=== PATIENT | male | born 1940 | race Caucasian/White ===

== ENCOUNTER 2020-11-22 15:10 | Inpatient (IN) | payer MEDICARE, MEDICAID, SELFPAY ==
[2020-11-22] VITALS (23 sets, daily range): BP systolic 123–188; BP diastolic 57–87; PULSE 94–117; RESP 12–41; TEMP 29.3–37.6; O2SAT 85–99; BMI 35.9
--- NOTE | 2020-11-22 15:18 | ED_ITS ---
HPI - General Adult General Chief complaint: Shortness of Breath/Dyspnea Stated complaint: COPD exac. Time Seen by Provider: 11/22/20 15:17 Source: patient and EMS Mode of arrival: EMS History of Present Illness HPI narrative: Patient is a 79-year-old male who arrives the emergency department by EMS. He is on CPAP. Has received 1 DuoNeb and steroids prior to arrival. EMS was called to the patient's house for evaluation of shortness of breath. Information was received from the patient, the patient's friend who is at bedside and EMS. Apparently for the past several weeks the patient has been having issues with breathing. Has had problems with getting around without becoming very short of breath. Does have lower extremity swelling which has presented itself over this time. No chest pain. No abdominal pain. Has not seen his primary doctor for the symptoms. Over the past week all of the symptoms seem to have worsened. His friends have tried to get him to come to the emergency department but he has declined until today he could not catch his breath and could not move around because of the problems breathing. When EMS arrived at his house is reported that his oxygen saturations were in the low 80s. This did improve with the BiPAP and somewhat improved with the DuoNeb. Patient states that he does not have a diagnosis of COPD. Does not have a diagnosis of CHF. Very rarely goes to the doctor. Related Data Allergies Allergy/AdvReac Type Severity Reaction Status Date / Time No Known Drug Allergies Allergy Verified 11/22/20 15:22 Review of Systems Constitutional Constitutional: Denies fever(s) and Denies headache(s) Eyes Eyes: Reports as per HPI ENT Ears, Nose, Mouth, and Throat: Denies headache(s) Cardiovascular Cardiovascular: Reports as per HPI Respiratory Respiratory: Reports as per HPI Gastrointestinal Gastrointestinal: Reports system reviewed and no additional complaints, except as documented Genitourinary Genitourinary: Reports system reviewed and no additional complaints, except as documented Musculoskeletal Musculoskeletal: Reports system reviewed and no additional complaints, except as documented Integumentary/Breasts Skin/Breast: Reports system reviewed and no additional complaints, except as documented and Denies rash Neurologic Neurologic: Denies headache(s) Psychiatric Psychiatric: Reports system reviewed and no additional complaints, except as documented Endocrine Endocrine: Reports system reviewed and no additional complaints, except as documented Hematologic/Lymphatic On Anticoagulants: No Allergic/Immunologic Allergic/Immunologic: Reports system reviewed and no additional complaints, exc ept as documented Patient History Medical History Congestive heart failure Social History lives independently: Yes Exam Initial Vital Signs Initial Vital Signs: Vital Signs Pulse Rate 106 H 11/22/20 15:13 Pulse Oximetry 99 11/22/20 15:13 Const General: in distress and ill appearing [facility] Head: normal to inspection and normocephalic Eyes General: appearance normal, both eyes and all related structures Neck Neck: normal visual inspection Chest Chest: normal inspection of the chest Resp Effort & Inspection: labored, respiratory distress and tachypneic Auscultation: crackles, diminished lung sounds and wheezes Cardio Rate: tachycardic Rhythm: regular rhythm GI Inspection: normal to inspection Palpation: soft Skin General: no rashes or lesions noted Neuro General: patient alert, patient awake, patient oriented x3 and moves all extremities Extrem General: normal to inspection and capillary refill normal Psych Appearance: grossly normal and well kempt Scores GCS Klaus coma scale eye opening: Spontaneous Klaus coma scale verbal response: Orientated [place] coma scale motor response: Obey commands Aurora coma scale total score: 15 Course Orders Ordered: ED Orders 11/22/20 15:12 COVID19 -Nasal swab/Pre-Proc Stat 11/22/20 15:17 COVID19 - ADMIT (HYDRAMATIC SPECIALIST swab/PCR) Stat 11/22/20 15:19 XR chest 1V Stat RT Consult Eval and Treat Now 11/22/20 15:29 Complete Blood Count AUTO DIFF Stat Comprehensive Metabolic Panel Stat Lactate (Lactic Acid) Stat Lipase Stat NT-proBNP (BNP-Adult 18+) Stat Procalcitonin Stat Troponin & CK Cardiac Panel Stat 11/22/20 15:55 Blood Culture Stat 11/22/20 16:08 Arterial Blood Gas Stat 11/22/20 16:41 EKG-12 Lead Stat Albuterol (Albuterol 2.5 Mg/3 Ml Neb (Adult)) 2.5 mg INH [id number] PRN PRN Reason: Shortness Of Breath Last Admin: 11/22/20 17:57 Dose: 2.5 mg Documented by: OWEN Sodium Chloride (Normal Saline 0.9%) 1,000 mls @ 100 mls/hr IV CONT LUAN Last Admin: 11/22/20 15:27 Dose: 100 mls/hr Documented by: NATALI Discontinued Medications Albuterol/Ipratropium (Albuterol/Ipratropium 3 Ml Ampul) 3 ml INH Q20M LUAN Stop: 11/22/20 16:11 Last Admin: 11/22/20 15:58 Dose: 3 ml Documented by: Admin: 11/22/20 15:49 Dose: 3 ml Documented by: Admin: 11/22/20 15:27 Dose: 3 ml Documented by: NATALI Furosemide (Furosemide 100 Mg/10 Ml Vial) 60 mg IV NOW ONE Stop: 11/22/20 15:22 Last Admin: 11/22/20 15:26 Dose: 60 mg Documented by: NATALI Nitroglycerin (Nitroglycerin Oint 1 Inch/Gm Oint...G.) 0.5 inch TOP NOW ONE Stop: 11/22/20 15:22 Last Admin: 11/22/20 15:26 Dose: 0.5 inch Documented by: NATALI Vital Signs Vital signs: Vital Signs - 8 hr 11/22/20 15:13 11/22/20 15:15 11/22/20 15:22 Temperature 99.1 F Pulse Rate 106 H 108 H 117 H Respiratory Rate 40 H Blood Pressure 188/87 H 188/87 H Pulse Oximetry 99 97 85 L 11/22/20 15:26 11/22/20 15:30 11/22/20 15:33 Temperature Pulse Rate 107 H 107 H 107 H Respiratory Rate 32 H 41 H 32 H Blood Pressure 188/87 H 157/72 H Pulse Oximetry 96 96 95 11/22/20 15:49 11/22/20 16:00 11/22/20 16:01 Temperature Pulse Rate 103 H 103 H 104 H Respiratory Rate 30 H 24 24 Blood Pressure 143/61 H Pulse Oximetry 94 93 94 11/22/20 16:30 11/22/20 17:00 11/22/20 17:30 Temperature Pulse Rate 104 H 112 H 103 H Respiratory Rate 27 H 31 H 29 H Blood Pressure 126/57 L 123/59 L 125/66 Pulse Oximetry 94 93 95 11/22/20 17:57 11/22/20 18:00 11/22/20 18:01 Temperature Pulse Rate 109 H 112 H 109 H Respiratory Rate 23 28 H 29 H Blood Pressure 145/65 H Pulse Oximetry 94 92 93 Medical Decision Making Medical Records Medical records reviewed: Yes I reviewed the patient's medical records. Lab Data Lab results reviewed: Yes I reviewed the patient's lab results. Result diagrams: 11/22/20 15:29 11/22/20 15:29 Labs: Lab Results 11/22/20 11/22/20 11/22/20 Range/Units 15:12 15:17 15:29 WBC 11.9 H (4.5-11.0) X10^3/uL RBC 4.00 L (4.5-5.9) X10^6/uL Hgb 13.7 (13.5-17.5) g/dL Hct 40.4 L (41-53) % MCV 101.0 H (80-100) fL MCH 34.3 H (26-34) PG MCHC 34.0 (30-36) % RDW 13.5 (11.6-14.8) % Plt Count 275 (150-400) X10^3/uL Neut % (Auto) 87.5 H (50-75) % Lymph % (Auto) 5.9 L (25-40) % [place] % (Auto) 6.5 (3-14) % Eos % (Auto) 0.0 L (2-4) % Baso % (Auto) 0.1 (0-2) % Neut # (Auto) 45349 H (3842-8128) /uL Lymph # (Auto) 700 L (0381-4806) /uL [place] # (Auto) 800 (0-900) /uL Eos # (Auto) 0 (0-450) /uL Baso # (Auto) 0 (0-100) /uL ABG pH (7.35-7.45) ABG pCO2 (35-45) mmHg ABG pO2 (80-100) mmHg ABG HCO3 (22-26) mmol/L ABG Total CO2 (21-31) mmol/L ABG O2 Saturation (95-100) % ABG Base Excess (-2-2) mmol/L FiO2 Sodium (137-145) mmol/L Potassium (3.4-5.1) mmol/L Chloride (98-107) mmol/L Carbon Dioxide (22-32) mmol/L BUN (9-20) mg/dL Creatinine (0.66-1.25) mg/dL Estimated GFR (>60) mL/min BUN/Creatinine Ratio (6-22) Glucose (80-110) mg/dL Lactate (0.7-2.1) mmol/L Calcium (8.4-10.2) mg/dL Total Bilirubin (0.2-1.3) mg/dL AST (17-59) IU/L ALT (<50) IU/L Alkaline Phosphatase (38-126) U/L Total Creatine Kinase (55-170) U/L CK-MB (CK-2) (<2.37) ng/mL CK-MB (CK-2) Rel Index (1.5-5.0) % Troponin I (0.01-0.034) ng/mL NT-Pro-B Natriuret Pep (<450) pg/mL Total Protein (6.3-8.2) g/dL Albumin (3.5-5.0) g/dL Globulin (1.7-4.1) g/dL Albumin/Globulin Ratio (1.0-2.8) Lipase (23-300) U/L Procalcitonin (<0.5) ng/mL SARS-CoV-2 (PCR) Negative Negative (Negative) 11/22/20 11/22/20 11/22/20 Range/Units 15:29 15:29 15:29 WBC (4.5-11.0) X10^3/uL RBC (4.5-5.9) X10^6/uL Hgb (13.5-17.5) g/dL Hct (41-53) % MCV (80-100) fL MCH (26-34) PG MCHC (30-36) % RDW (11.6-14.8) % Plt Count (150-400) X10^3/uL Neut % (Auto) (50-75) % Lymph % (Auto) (25-40) % [place] % (Auto) (3-14) % Eos % (Auto) (2-4) % Baso % (Auto) (0-2) % Neut # (Auto) (4121-5926) /uL Lymph # (Auto) (4280-7297) /uL [place] # (Auto) (0-900) /uL Eos # (Auto) (0-450) /uL Baso # (Auto) (0-100) /uL ABG pH (7.35-7.45) ABG pCO2 (35-45) mmHg ABG pO2 (80-100) mmHg ABG HCO3 (22-26) mmol/L ABG Total CO2 (21-31) mmol/L ABG O2 Saturation (95-100) % ABG Base Excess (-2-2) mmol/L FiO2 Sodium 126 L (137-145) mmol/L Potassium 5.4 H (3.4-5.1) mmol/L Chloride 90 L (98-107) mmol/L Carbon Dioxide 28 (22-32) mmol/L BUN 23 H (9-20) mg/dL Creatinine 1.13 (0.66-1.25) mg/dL Estimated GFR > 60.0 (>60) mL/min BUN/Creatinine Ratio 20.4 (6-22) Glucose 137 H (80-110) mg/dL Lactate 0.9 (0.7-2.1) mmol/L Calcium 9.9 (8.4-10.2) mg/dL Total Bilirubin 0.5 (0.2-1.3) mg/dL AST 44 (17-59) IU/L ALT 37 (<50) IU/L Alkaline Phosphatase 87 (38-126) U/L Total Creatine Kinase 131 (55-170) U/L CK-MB (CK-2) 5.57 H (<2.37) ng/mL CK-MB (CK-2) Rel Index 4.3 (1.5-5.0) % Troponin I 0.074 H (0.01-0.034) ng/mL NT-Pro-B Natriuret Pep 4930 H (<450) pg/mL Total Protein 7.6 (6.3-8.2) g/dL Albumin 4.4 (3.5-5.0) g/dL Globulin 3.2 (1.7-4.1) g/dL Albumin/Globulin Ratio 1.4 (1.0-2.8) Lipase 97 (23-300) U/L Procalcitonin 0.14 (<0.5) ng/mL SARS-CoV-2 (PCR) (Negative) 11/22/20 Range/Units 16:08 WBC (4.5-11.0) X10^3/uL RBC (4.5-5.9) X10^6/uL Hgb (13.5-17.5) g/dL Hct (41-53) % MCV (80-100) fL MCH (26-34) PG MCHC (30-36) % RDW (11.6-14.8) % Plt Count (150-400) X10^3/uL Neut % (Auto) (50-75) % Lymph % (Auto) (25-40) % [place] % (Auto) (3-14) % Eos % (Auto) (2-4) % Baso % (Auto) (0-2) % Neut # (Auto) (3341-0676) /uL Lymph # (Auto) (8264-2793) /uL [place] # (Auto) (0-900) /uL Eos # (Auto) (0-450) /uL Baso # (Auto) (0-100) /uL ABG pH 7.40 (7.35-7.45) ABG pCO2 51.3 H (35-45) mmHg ABG pO2 72 L (80-100) mmHg ABG HCO3 32 H (22-26) mmol/L ABG Total CO2 34 H (21-31) mmol/L ABG O2 Saturation 94 L (95-100) % ABG Base Excess 7.0 H (-2-2) mmol/L FiO2 40 Sodium (137-145) mmol/L Potassium (3.4-5.1) mmol/L Chloride (98-107) mmol/L Carbon Dioxide (22-32) mmol/L BUN (9-20) mg/dL Creatinine (0.66-1.25) mg/dL Estimated GFR (>60) mL/min BUN/Creatinine Ratio (6-22) Glucose (80-110) mg/dL Lactate (0.7-2.1) mmol/L Calcium (8.4-10.2) mg/dL Total Bilirubin (0.2-1.3) mg/dL AST (17-59) IU/L ALT (<50) IU/L Alkaline Phosphatase (38-126) U/L Total Creatine Kinase (55-170) U/L CK-MB (CK-2) (<2.37) ng/mL CK-MB (CK-2) Rel Index (1.5-5.0) % Troponin I (0.01-0.034) ng/mL NT-Pro-B Natriuret Pep (<450) pg/mL Total Protein (6.3-8.2) g/dL Albumin (3.5-5.0) g/dL Globulin (1.7-4.1) g/dL Albumin/Globulin Ratio (1.0-2.8) Lipase (23-300) U/L Procalcitonin (<0.5) ng/mL SARS-CoV-2 (PCR) (Negative) Imaging Data Chest x-ray: Radiologist's Impression: [address] [id number] ReportSigned Patient: Beto Garcia#: [id number]: 2Acct:[id number]/Sex: 79 / MDate of Service: 11/22/20Loc: EDAccession Number: [id number] Procedure: XR chest 1V Ordering Provider: Yossi Mckeon D.O. PROCEDURE: XR CHEST 1V INDICATIONS: Shortness of breath TECHNIQUE: One view of the chest was acquired. COMPARISON: [facility], CR, XR CHEST 2 VIEWS, 12/29/2019, 15:13. [facility], CT, CT CHEST WITH CONTRAST, 01/14/2020, 15:07. FINDINGS: Surgical changes and devices: There is a catheter projecting over the right paramedian chest. Lungs and pleura: Mild airspace opacity in the right lower lung similar to the prior exam. Emphysematous change. No pleural effusions or pneumothorax. Mediastinum: Mediastinal contours appear unchanged. Heart size is within normal limits. Bones and chest wall: No suspicious bony lesions. Overlying soft tissues appear unremarkable. IMPRESSION: Similar opacity in the right lower lung compared to 2020. This most likely represents scarring or atelectasis. Emphysematous change. Dictated by: Matthias Lama M.D. on 11/22/2020 at 15:46 Approved by: Matthias Lama M.D. on 11/22/2020 at 15:50 ECG Data Attestation: I personally reviewed and interpreted this ECG as follows: Interpretation: Sinus tachycardia Ventricular rate 102 Normal axis Normal QRS Normal QTC Nonspecific ST T wave changes MDM Narrative Medical decision making narrative: Patient did respiratory distress. He had already received a nebulizer and steroids prior to arrival. His COVID was negative. Chest x-ray does not show any signs of pneumonia. No antibiotics administered. Use placed on BiPAP in this did improve his symptoms tremendously. Was hypertensive upon arrival. Was also given nitro. Is also given Lasix. He did not diurese very much here in the ER. His blood pressure improved. Attempted to take the patient off of BiPAP however after approximately 10 minutes he did become hypoxic and to return if his respiratory distress. He is placed back on BiPAP. Discussed the case with Dr. Coulter with internal medicine who will admit for further evaluation treatment. Discussed admission with the patient. He expressed understanding. Critical Care Time Critical Care Time Critical Care Time: Yes Total Critical Care Time: 35 Attestation: The high probability of a clinically significant, sudden or life threatening deterioration of the respiratory system(s) required my full and direct attention, intervention and personal management. The aggregate critical care time was 35 minutes. This time is in addition to time spent performing reported procedures but includes the following: [x] Data Review and interpretation [x] Patient assessment and monitoring of vital signs [x] Documentation [x] Medication orders and management Discharge Plan Departure Patient Disposition: Admitted As Inpatient Clinical Impression: COPD exacerbation, Hypoxia, Congestive heart failure Admit Date/Time: 11/22/20 18:19 Admit Provider: Gerard Coulter
[2020-11-22] MEDS: NITROGLYCERIN OINT 1 INCH/GM OINT...G. 0.5 INCH TOP (15:26)
[2020-11-22] MEDS: FUROSEMIDE 100 MG/10 ML VIAL 60 MG IV (15:26)
[2020-11-22] MEDS: ALBUTEROL/IPRATROPIUM 3 ML AMPUL INH ×3 (15:27→15:58)
[2020-11-22] MEDS: SODIUM CHLORIDE 0.9% 1,000 ML 100 ML IV (15:27)
[2020-11-22 15:41] LABS: Add Manual Diff / Slide Review NO; Basophils Absolute Auto 0 /uL (0-100); Basophils Percent Auto 0.1 % (0-2); Eosinophils Absolute Auto 0 /uL (0-450); Hematocrit 40.4 % (41-53); Hemoglobin 13.7 g/dL (13.5-17.5); Lymphocytes Absolute Auto 700 /uL (1100-4500); Lymphocytes Percent Auto 5.9 % (25-40); Mean Corpuscular Hemoglobin 34.3 PG (26-34); Monocytes Absolute Auto 800 /uL (0-900); Monocytes Percent Auto 6.5 % (3-14); Neutrophils Absolute Auto 10400 /uL (1500-7000); Neutrophils Percent Auto 87.5 % (50-75); Platelet Count 275 X10^3/uL (150-400); Red Cell Distribution Width 13.5 % (11.6-14.8); White Blood Cell Count 11.9 X10^3/uL (4.5-11.0)
[2020-11-22 15:52] LABS: Lactate (Lactic Acid) 0.9 mmol/L (0.7-2.1)
[2020-11-22 15:53] LABS: Alanine Aminotransferase 37 IU/L (<50); Albumin 4.4 g/dL (3.5-5.0); Albumin Globulin Ratio 1.4 (1.0-2.8); Alkaline Phosphatase 87 U/L (38-126); Aspartate Aminotransferase 44 IU/L (17-59); BUN Creatinine Ratio 20.4 (6-22); Bilirubin Total 0.5 mg/dL (0.2-1.3); Blood Urea Nitrogen 23 mg/dL (9-20); Calcium 9.9 mg/dL (8.4-10.2); Carbon Dioxide 28 mmol/L (22-32); Chloride 90 mmol/L (98-107); Creatine Kinase 131 U/L (55-170); Estimated Glomerular Filt Rate > 60.0 mL/min (>60); Globulin 3.2 g/dL (1.7-4.1); Glucose 137 mg/dL (80-110); HEMOLYSIS < 15 (0-50); Lipase 97 U/L (23-300); Sodium 126 mmol/L (137-145); Total Protein 7.6 g/dL (6.3-8.2)
[2020-11-22 15:58] LABS: Potassium 5.4 mmol/L (3.4-5.1)
[2020-11-22 16:01] LABS: COVID19 -Nasal RAPID Negative (Negative)
[2020-11-22 16:05] LABS: NT-proBNP (BNP-Adult 18+) 4930 pg/mL (<450); Troponin I 0.074 ng/mL (0.01-0.034)
[2020-11-22 16:10] LABS: Procalcitonin 0.14 ng/mL (<0.5)
[2020-11-22 16:15] LABS: CKMB % Relative Index 4.3 % (1.5-5.0); Creatine Kinase MB 5.57 ng/mL (<2.37)
[2020-11-22 16:35] LABS: COVID19 - ADMIT (NP swab/PCR) Negative (Negative)
[2020-11-22] MEDS: ALBUTEROL 2.5 MG/3 ML NEB (ADULT) INH ×2 (17:57→22:43)
--- NOTE | 2020-11-22 17:57 | PC.NURSE ---
Felix RT attempted to take pt off bipap. Pt put on nasal canula. he failed and was placed back on bipap
[2020-11-22 18:16] LABS: HCO3 ABG 32 mmol/L (22-26); PCO2 ABG 51.3 mmHg (35-45); PO2 ABG 72 mmHg (80-100)
[2020-11-22 18:17] LABS: Fractionated Inspired Oxygen 40; Oxygen Saturation ABG 94 % (95-100); TCO2 ABG 34 mmol/L (21-31)
[2020-11-22 20:24] LABS: Magnesium 1.9 mg/dL (1.6-2.3)
[2020-11-22 21:37] LABS: Troponin I 0.085 ng/mL (0.01-0.034)
--- NOTE | 2020-11-22 23:16 | PC.ADMIT ---
[address] Admission Note: The patient,Bhupendra Garcia,79 y/o, was given written information regarding hospital policies, unit procedures and contact persons. Patient's smoking status: . Vital Signs - 8 hr 11/22/20 15:22 11/22/20 15:26 11/22/20 15:30 Temperature 99.1 F Pulse Rate 117 H 107 H 107 H Respiratory Rate 40 H 32 H 41 H Blood Pressure 188/87 H 188/87 H Pulse Oximetry 85 L 96 96 11/22/20 15:33 11/22/20 15:49 11/22/20 16:00 Temperature Pulse Rate 107 H 103 H 103 H Respiratory Rate 32 H 30 H 24 Blood Pressure 157/72 H Pulse Oximetry 95 94 93 11/22/20 16:01 11/22/20 16:30 11/22/20 17:00 Temperature Pulse Rate 104 H 104 H 112 H Respiratory Rate 24 27 H 31 H Blood Pressure 143/61 H 126/57 L 123/59 L Pulse Oximetry 94 94 93 11/22/20 17:30 11/22/20 17:57 11/22/20 18:00 Temperature Pulse Rate 103 H 109 H 112 H Respiratory Rate 29 H 23 28 H Blood Pressure 125/66 Pulse Oximetry 95 94 92 11/22/20 18:01 11/22/20 18:30 11/22/20 18:31 Temperature Pulse Rate 109 H 106 H 94 H Respiratory Rate 29 H 21 18 Blood Pressure 145/65 H 126/58 L Pulse Oximetry 93 97 95 11/22/20 19:00 11/22/20 19:51 11/22/20 19:59 Temperature 99.6 F Pulse Rate 109 H Respiratory Rate 20 30 H Blood Pressure 133/65 174/85 H 174/85 H Pulse Oximetry 94 96 11/22/20 21:00 11/22/20 22:45 Temperature Pulse Rate 107 H Respiratory Rate 32 H Blood Pressure 174/85 H 174/85 H Pulse Oximetry 95 Patient admitted from ED to ICU under hospitalists care at 1950. Patient A/Ox4, on bipap 18/10, 35% FiO2, spO2 in 90's, hypertensive, sinus tach on telemetry. 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 Patient's belongings in room closet. Oriented to room, able to make needs known.
[2020-11-23] VITALS (25 sets, daily range): BP systolic 144–195; BP diastolic 56–84; PULSE 87–117; RESP 12–35; TEMP 30.7–37.4; O2SAT 92–97
[2020-11-23] MEDS: AMLODIPINE 5 MG TABLET 10 MG PO ×2 (00:17→20:23)
[2020-11-23] MEDS: diphenhydrAMINE 25 MG TABLET PO (00:18)
[2020-11-23] MEDS: ALBUTEROL/IPRATROPIUM 3 ML AMPUL INH ×5 (01:07→20:09)
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
[2020-11-23] MEDS: IPRATROPIUM 0.5 MG/2.5 ML NEB INH (05:47)
[2020-11-23] MEDS: ALBUTEROL 2.5 MG/3 ML NEB (ADULT) INH (05:48)
[2020-11-23 06:27] LABS: Add Manual Diff / Slide Review NO; Basophils Absolute Auto 0 /uL (0-100); Basophils Percent Auto 0.1 % (0-2); Eosinophils Absolute Auto 0 /uL (0-450); Hematocrit 37.7 % (41-53); Hemoglobin 12.7 g/dL (13.5-17.5); Lymphocytes Absolute Auto 800 /uL (1100-4500); Lymphocytes Percent Auto 7.4 % (25-40); Mean Corpuscular HGB Conc 33.6 % (30-36); Mean Corpuscular Volume 101.1 fL (80-100); Monocytes Absolute Auto 800 /uL (0-900); Monocytes Percent Auto 7.8 % (3-14); Neutrophils Absolute Auto 8800 /uL (1500-7000); Neutrophils Percent Auto 84.7 % (50-75); Platelet Count 259 X10^3/uL (150-400); Red Blood Cell Count 3.73 X10^6/uL (4.5-5.9); Red Cell Distribution Width 13.7 % (11.6-14.8); White Blood Cell Count 10.4 X10^3/uL (4.5-11.0)
--- NOTE | 2020-11-23 06:32 | PC.NURSE ---
Bun Machine Operator Note-Patient tolerated Bi-pap overnight, FIO2 35%, 30/01, SpO2 > 93%, placed on3.5L NC at 0100 to have a snack, sats 90%, no dyspnea, at 0545 placed on NC but quickly became short of breath, no chest pain, Bi-pap back on, RT tx given, HOB in high Fowlers, he settled.
[2020-11-23 06:33] LABS: Prothrombin Time 11.3 SECONDS (10.1-12.7)
[2020-11-23 06:40] LABS: Alanine Aminotransferase 29 IU/L (<50); Albumin 3.8 g/dL (3.5-5.0); Albumin Globulin Ratio 1.3 (1.0-2.8); Alkaline Phosphatase 69 U/L (38-126); Aspartate Aminotransferase 33 IU/L (17-59); Bilirubin Total 0.4 mg/dL (0.2-1.3); Blood Urea Nitrogen 34 mg/dL (9-20); Calcium 9.4 mg/dL (8.4-10.2); Carbon Dioxide 29 mmol/L (22-32); Chloride 92 mmol/L (98-107); Estimated Glomerular Filt Rate 50.7 mL/min (>60); Globulin 2.9 g/dL (1.7-4.1); Glucose 156 mg/dL (80-110); HEMOLYSIS < 15 (0-50); Sodium 127 mmol/L (137-145); Total Protein 6.7 g/dL (6.3-8.2)
[2020-11-23 06:43] LABS: Potassium 5.1 mmol/L (3.4-5.1)
[2020-11-23 06:46] LABS: NT-proBNP (BNP-Adult 18+) 4240 pg/mL (<450)
[2020-11-23 06:50] LABS: Troponin I 0.092 ng/mL (0.01-0.034)
[2020-11-23] MEDS: BUDESONIDE 0.5 MG/2 ML NEB INH ×2 (07:28→20:09)
[2020-11-23 08:13] LABS: Fractionated Inspired Oxygen 35; HCO3 ABG 31 mmol/L (22-26); Oxygen Saturation ABG 95 % (95-100); PCO2 ABG 52.5 mmHg (35-45); PO2 ABG 80 mmHg (80-100); TCO2 ABG 33 mmol/L (21-31); pH ABG 7.38 (7.35-7.45)
[2020-11-23] MEDS: predniSONE 20 MG TABLET 40 MG PO (08:27)
[2020-11-23] MEDS: lisinopriL 20 MG TABLET 40 MG PO (08:27)
[2020-11-23] MEDS: ENOXAPARIN 40 MG/0.4 ML SYRINGE SUBCUT (08:27)
[2020-11-23] MEDS: SODIUM CHLORIDE 0.9% FLUSH 10 ML IV ×3 (08:28→20:23)
[2020-11-23] MEDS: FUROSEMIDE 40 MG/4 ML VIAL IV (08:51)
--- NOTE | 2020-11-23 10:55 | CM.DANOTE ---
Patient is a 79 yo male admitted on 11/22/20 for COPD exacerbation. Pt has [facility] and [facility] for insurance and his PCP is not listed. EMR was reviewed. Per MD, pt admitted with respiratory failure with hypoxia and COPD exacerbation with possible CHF. Per RN, pt currently on bipap after NC Oxygen was not enough. SW met bedside with pt and explained role and he was alert and oriented but a little hard to hear due to bipap. Pt lives alone in an apt in [place] but has very supportive neighbor who delivers groceries to him and another neighbor who calls on the phone to check in and then his close friends Coco Arevalo and her who are pt's DPOAs. Pt states he is typically somewhat active and independent at baseline and maybe has a sister who lives nearby in Assisted Living. Pt denies any hx of HH or SNF and states he is already feeling better but still below baseline. PT eval could be beneficial once pt more medically appropriate with his Sats towards determining if safe for d/c back home alone with local assist from friends. Plan: SW to follow for further eval closer to d/c towards determining if home alone with local assist is safe and any further identified needs. DAYNA Moran Discharge Planning/Care Management CM Discharge Assessment Start: 11/23/20 10:53 Freq: Status: Active Protocol: Document 11/23/20 10:53 BF (Rec: 11/23/20 10:55 BF [id number]) Discharge Planning Assessment Assigned Cup Setter Lockstitch DAYNA Gallardo DPOA/Assigned Designee Name friend Coco Arevalo Contact Information [phone] Advance Directives? No Advance Directives on File No History Provided By Patient,Medical Record Has Patient been admitted in last 30 No days? Prior Living Arrangements Apartment/Condo Household Members none Type of transporation used prior to Drives own vehicle admit Independent with ADL's Yes Is patient alert and oriented? Yes Needs Assistance With Home Chores / Shopping Caregiver for Another No Barriers to Discharge No Discharge Plan Home Transportation Arrangement friend can likely transport at d/c Additional Comment Pending possible need for PT eval when pt more medically appropriate Whiteboard Updated in Patient Room with Yes name and ext. # of Cup Setter Lockstitch Review Status In Process Please Provide Date Initial DC 11/23/20 Assessment Was Performed Next Review Type Continued Stay Review
[2020-11-23 12:49] LABS: Troponin I 0.077 ng/mL (0.01-0.034)
--- NOTE | 2020-11-23 15:10 | PC.NURSE ---
Patient tolerated BiPAP well today, managed by RT. Patient denies pain, feeling better but reports being tired from not sleeping well last night. Tolerated sitting up in chair, 1 min assistance to get up and agrees to call for assistance. RT titrated to NC at change of shift, and currently at 94-95% on 4L. Urinal and Call light within reach.
--- NOTE | 2020-11-23 17:15 | PC.NURSE ---
1500: Pt up to BSC for BM, HR up to 120, RR 30, SPO2 80% Placed back on BIPAP at previous settings of 15/8 35%. O2 SATs improved to 92% and HR 102.
--- NOTE | 2020-11-23 18:19 | PM.PN.1 ---
Subjective Subjective Interval history: Patient is a 79-year-old male who was admitted to the hospital with acute on chronic respiratory failure, he was initially on BiPAP, patient was taken off BiPAP but got up this evening and was markedly tachycardic, tachypneic, and hypoxic. He was placed back on BiPAP. Exam Vital Signs (past 8 hours): - 11/23/20 10:36 11/23/20 12:00 11/23/20 12:52 Temperature 98.4 F Pulse Rate 87 102 H Respiratory Rate 21 23 Blood Pressure 150/84 H 150/84 H Pulse Oximetry 95 93 11/23/20 14:15 11/23/20 14:36 11/23/20 14:42 Temperature 97.5 F L Pulse Rate 90 109 H Respiratory Rate 24 24 Blood Pressure 155/73 H 155/73 H Pulse Oximetry 93 94 11/23/20 15:26 11/23/20 15:57 11/23/20 16:42 Temperature 98.2 F Pulse Rate 99 H 100 H 92 H Respiratory Rate 24 30 H 24 Blood Pressure 159/70 H Pulse Oximetry 93 94 93 11/23/20 17:05 Temperature Pulse Rate Respiratory Rate Blood Pressure 159/70 H Pulse Oximetry Fraction of Inspired Oxygen 30 Oxygen Delivery Method Nasal Cannula Oxygen Flow Rate 2.5 Narrative Exam Narrative: Ill-appearing male lying in bed Resp Other: Lungs decreased breath sounds Cardio Other: Cardiac exam: Regular rate and rhythm normal S1-S2 GI Other: Abdomen: Soft nontender nondistended Extrem Other: Extremities: No edema Objective Labs Result Diagrams: 11/23/20 05:05 11/23/20 05:05 Labs: Laboratory Results - last 24 hr 11/22/20 11/22/20 11/23/20 15:29 21:00 05:05 WBC 10.4 RBC 3.73 L Hgb 12.7 L Hct 37.7 L MCV 101.1 H MCH 34.0 MCHC 33.6 RDW 13.7 Plt Count 259 Neut % (Auto) 84.7 H Lymph % (Auto) 7.4 L [place] % (Auto) 7.8 Eos % (Auto) 0.0 L Baso % (Auto) 0.1 Neut # (Auto) 8800 H Lymph # (Auto) 800 L [place] # (Auto) 800 Eos # (Auto) 0 Baso # (Auto) 0 PT INR ABG pH ABG pCO2 ABG pO2 ABG HCO3 ABG Total CO2 ABG O2 Saturation ABG Base Excess FiO2 Sodium Potassium Chloride Carbon Dioxide BUN Creatinine Estimated GFR BUN/Creatinine Ratio Glucose Calcium Magnesium 1.9 Total Bilirubin AST ALT Alkaline Phosphatase Troponin I 0.085 H NT-Pro-B Natriuret Pep Total Protein Albumin Globulin Albumin/Globulin Ratio Nasal Screen MRSA (PCR) 11/23/20 11/23/20 11/23/20 05:05 05:05 05:05 WBC RBC Hgb Hct MCV MCH MCHC RDW Plt Count Neut % (Auto) Lymph % (Auto) [place] % (Auto) Eos % (Auto) Baso % (Auto) Neut # (Auto) Lymph # (Auto) [place] # (Auto) Eos # (Auto) Baso # (Auto) PT 11.3 INR 1.0 ABG pH ABG pCO2 ABG pO2 ABG HCO3 ABG Total CO2 ABG O2 Saturation ABG Base Excess FiO2 Sodium 127 L Potassium 5.1 Chloride 92 L Carbon Dioxide 29 BUN 34 H Creatinine 1.36 H Estimated GFR 50.7 L BUN/Creatinine Ratio 25.0 H Glucose 156 H Calcium 9.4 Magnesium Total Bilirubin 0.4 AST 33 ALT 29 Alkaline Phosphatase 69 Troponin I 0.092 H NT-Pro-B Natriuret Pep 4240 H Total Protein 6.7 Albumin 3.8 Globulin 2.9 Albumin/Globulin Ratio 1.3 Nasal Screen MRSA (PCR) 11/23/20 11/23/20 11/23/20 07:31 10:28 12:20 WBC RBC Hgb Hct MCV MCH MCHC RDW Plt Count Neut % (Auto) Lymph % (Auto) [place] % (Auto) Eos % (Auto) Baso % (Auto) Neut # (Auto) Lymph # (Auto) [place] # (Auto) Eos # (Auto) Baso # (Auto) PT INR ABG pH 7.38 ABG pCO2 52.5 H ABG pO2 80 ABG HCO3 31 H ABG Total CO2 33 H ABG O2 Saturation 95 ABG Base Excess 6.0 H FiO2 35 Sodium Potassium Chloride Carbon Dioxide BUN Creatinine Estimated GFR BUN/Creatinine Ratio Glucose Calcium Magnesium Total Bilirubin AST ALT Alkaline Phosphatase Troponin I 0.077 H NT-Pro-B Natriuret Pep Total Protein Albumin Globulin Albumin/Globulin Ratio Nasal Screen MRSA (PCR) Negative for mrsa [facility] Medical History (Updated 11/23/20 @ 03:51 by JESSE Ann) Congestive heart failure Insomnia JESUS on CPAP Surgical History (Updated 11/23/20 @ 03:51 by JESSE Ann) History of tonsillectomy Family History Mother Diabetes mellitus Father Diabetes mellitus Social History household members: none lives independently: Yes alcohol intake: current Assessment & Plan Assessment & Plan narrative: Acute hypercapnic respiratory failure with hypoxia and COPD exacerbation in the possible setting acute CHF exacerbation, acute on chronic, the setting of chronic JESUS with CPAP usage, present on admission, with NO home oxygen use. -possible acute on chronic, verses end-stage interstitial lung disease, COPD/CHF exacerbation -temp 99.1?, BP 133/65, HR 94, R 20, O2 saturation 94% on BiPAP 18/10 rate of 12, 35%. WBCs 11.9, MCV 101, neutrophils 10,400, HCT 40.4, sodium 126, Cl 90, BUN 23, potassium 5.4, glucose 137. ABGs: PH 7.4, pCO2 51.3, HC03 32, FiO2 40. Patient's chest x-ray demonstrated similar opacities in right lower lobe as compared with 2020 possible scarring or atelectasis Emphysematous changes. -a.m. labs ordered pro BNP, magnesium, CBC, CMP, PT/PTT, Repeat ABG. -patient to be monitored on tele medicine, vital signs q.4 hours, intake and output monitored Q shift, weight measure daily, diet:heart healthy. -Lasix 20 mg p.o. b.i.d., prednisone 40 mg p.o. q.dayx 5days -respiratory consult, patient to remain on BiPAP, continue patient's inhalers as prescribed Atrovent, Pulmicort, albuterol -given the patient's severe acute hypoxic respiratory failure will switch prednisone to IV Solu-Medrol 60 Q 8 -will change Lasix to 40 mg IV daily Hyponatremia -multifactorial, will follow up in the morning 2. Elevated troponin, acute, present on admission - CK-MB 5.57, troponin 0.074, proBNP 4930. Patient's lipase, procalcitonin negative. EKG: tachycardic at a rate of 102, with nonspecific ST and T-wave changes. -repeat troponin x2 -monitor for [place], repeat troponin, proBNP in a.m. -troponin peaked at 0.092 now 0.077 -suspect demand ischemia related to underlying acute hypoxic respiratory failure 3. Essential hypertension, acute on chronic, present on admission -continue patient's amlodipine 4. Chronic back pain due to degenerative disc disease, acute on chronic, present on admission -position for comfort, continue patient's gabapentin 5. Obesity as evidence by BMI 35.9, acute on chronic, present on admission Consideration will be given to dietary counseling. I have utilized all available immediate resources to obtain update and review the patient's current medications
[2020-11-23] MEDS: methylPREDNISolone 125 MG/2 ML VIAL 60 MG IV (18:28)
[2020-11-23] MEDS: TEMAZEPAM 15 MG CAPSULE PO (21:53)
[2020-11-24] VITALS (19 sets, daily range): BP systolic 150–172; BP diastolic 65–79; PULSE 64–103; RESP 12–37; TEMP 35.9–37.1; O2SAT 91–95
[2020-11-24] MEDS: ALBUTEROL/IPRATROPIUM 3 ML AMPUL INH ×6 (00:03→20:05)
[2020-11-24] MEDS: methylPREDNISolone 125 MG/2 ML VIAL 60 MG IV ×3 (01:42→17:32)
[2020-11-24] MEDS: diphenhydrAMINE 25 MG TABLET PO (02:16)
[2020-11-24 05:36] LABS: Add Manual Diff / Slide Review NO; Basophils Absolute Auto 0 /uL (0-100); Basophils Percent Auto 0.1 % (0-2); Eosinophils Absolute Auto 0 /uL (0-450); Hematocrit 37.7 % (41-53); Hemoglobin 12.6 g/dL (13.5-17.5); Lymphocytes Absolute Auto 600 /uL (1100-4500); Lymphocytes Percent Auto 4.5 % (25-40); Mean Corpuscular HGB Conc 33.3 % (30-36); Mean Corpuscular Hemoglobin 33.6 PG (26-34); Monocytes Absolute Auto 400 /uL (0-900); Monocytes Percent Auto 3.3 % (3-14); Neutrophils Absolute Auto 11900 /uL (1500-7000); Neutrophils Percent Auto 92.1 % (50-75); Platelet Count 258 X10^3/uL (150-400); Red Blood Cell Count 3.73 X10^6/uL (4.5-5.9); Red Cell Distribution Width 13.7 % (11.6-14.8)
[2020-11-24 05:46] LABS: Alanine Aminotransferase 25 IU/L (<50); Albumin 3.6 g/dL (3.5-5.0); Albumin Globulin Ratio 1.3 (1.0-2.8); Alkaline Phosphatase 59 U/L (38-126); Aspartate Aminotransferase 26 IU/L (17-59); BUN Creatinine Ratio 33.1 (6-22); Bilirubin Total 0.3 mg/dL (0.2-1.3); Blood Urea Nitrogen 43 mg/dL (9-20); Calcium 9.2 mg/dL (8.4-10.2); Carbon Dioxide 31 mmol/L (22-32); Chloride 92 mmol/L (98-107); Estimated Glomerular Filt Rate 53.4 mL/min (>60); Globulin 2.8 g/dL (1.7-4.1); Glucose 172 mg/dL (80-110); HEMOLYSIS < 15 (0-50); Sodium 127 mmol/L (137-145); Total Protein 6.4 g/dL (6.3-8.2)
[2020-11-24] MEDS: BUDESONIDE 0.5 MG/2 ML NEB INH ×2 (06:04→20:05)
--- NOTE | 2020-11-24 06:14 | PC.NURSE ---
Assumed care of Pt @ 0300, Pt tolerating Bipap well this shift. Resting comfortably with 15/8 30% Fio2.
[2020-11-24] MEDS: lisinopriL 20 MG TABLET 40 MG PO (08:05)
[2020-11-24] MEDS: ENOXAPARIN 40 MG/0.4 ML SYRINGE SUBCUT (08:05)
[2020-11-24] MEDS: FUROSEMIDE 40 MG/4 ML VIAL IV (08:05)
[2020-11-24] MEDS: SODIUM CHLORIDE 0.9% FLUSH 10 ML IV ×3 (08:05→20:30)
[2020-11-24] MEDS: ALBUTEROL 2.5 MG/3 ML NEB (ADULT) INH (08:19)
--- NOTE | 2020-11-24 09:08 | PC.NURSE ---
Patient reports he finally got some sleep last night after having insomnia for multiple nights. Patient reports feeling discouraged that he is not better today. RT transitioned patient from Bipap to 3.5L NC and patient attempting to eat breakfast at this time. 90-93% on continuous pulse ox. Feels increasing shortness of breath with any movement. Call light and urinal within reach. noted increased blood sugars and notified Dr. Sanderson, she will evaluate for sliding scale if needed.
--- NOTE | 2020-11-24 11:01 | PM.PN.1 ---
Exam Vital Signs (past 8 hours): - 11/24/20 04:04 11/24/20 04:13 11/24/20 06:05 Temperature 97.5 F L Pulse Rate 67 79 Respiratory Rate 18 18 Blood Pressure 164/74 H 164/74 H Pulse Oximetry 92 95 11/24/20 06:08 11/24/20 08:05 11/24/20 08:21 Temperature Pulse Rate 96 H 100 H Respiratory Rate 24 Blood Pressure 164/74 H 164/77 H Pulse Oximetry 92 11/24/20 08:54 Temperature 98.3 F Pulse Rate 89 Respiratory Rate 23 Blood Pressure 164/77 H Pulse Oximetry 95 Fraction of Inspired Oxygen 30 Oxygen Delivery Method Nasal Cannula Oxygen Flow Rate 30 Narrative Exam Narrative: Ill appearing male on 3.5 liters sitting up in bed Eyes Other: EOMi, Sclera anicteric Resp Other: Decreased Breath Sounds with diffuse rhonchi and prolonged end expiratory wheezing Cardio Other: Regular Rate and Rhythm Nl sl S2 GI Other: Abd: soft/ non tender Extrem Other: No edema Objective Labs Result Diagrams: 11/24/20 05:23 11/24/20 05:23 Labs: Laboratory Results - last 24 hr 11/23/20 11/23/20 11/24/20 10:28 12:20 05:23 WBC 13.0 H RBC 3.73 L Hgb 12.6 L Hct 37.7 L MCV 101.0 H MCH 33.6 MCHC 33.3 RDW 13.7 Plt Count 258 Neut % (Auto) 92.1 H Lymph % (Auto) 4.5 L [place] % (Auto) 3.3 Eos % (Auto) 0.0 L Baso % (Auto) 0.1 Neut # (Auto) 98100 H Lymph # (Auto) 600 L [place] # (Auto) 400 Eos # (Auto) 0 Baso # (Auto) 0 Sodium Potassium Chloride Carbon Dioxide BUN Creatinine Estimated GFR BUN/Creatinine Ratio Glucose Calcium Total Bilirubin AST ALT Alkaline Phosphatase Troponin I 0.077 H Total Protein Albumin Globulin Albumin/Globulin Ratio Nasal Screen MRSA (PCR) Negative for mrsa 11/24/20 05:23 WBC RBC Hgb Hct MCV MCH MCHC RDW Plt Count Neut % (Auto) Lymph % (Auto) [place] % (Auto) Eos % (Auto) Baso % (Auto) Neut # (Auto) Lymph # (Auto) [place] # (Auto) Eos # (Auto) Baso # (Auto) Sodium 127 L Potassium 5.0 Chloride 92 L Carbon Dioxide 31 BUN 43 H Creatinine 1.30 H Estimated GFR 53.4 L BUN/Creatinine Ratio 33.1 H Glucose 172 H Calcium 9.2 Total Bilirubin 0.3 AST 26 ALT 25 Alkaline Phosphatase 59 Troponin I Total Protein 6.4 Albumin 3.6 Globulin 2.8 Albumin/Globulin Ratio 1.3 Nasal Screen MRSA (PCR) [facility] Medical History (Updated 11/23/20 @ 03:51 by JESSE Ann) Congestive heart failure Insomnia JESUS on CPAP Surgical History (Updated 11/23/20 @ 03:51 by JESSE Ann) History of tonsillectomy Family History Mother Diabetes mellitus Father Diabetes mellitus Social History household members: none lives independently: Yes alcohol intake: current Assessment & Plan Assessment & Plan narrative: Acute hypercapnic respiratory failure with hypoxia and COPD exacerbation in the possible setting acute CHF exacerbation, acute on chronic, the setting of chronic JESUS with CPAP usage, present on admission, with NO home oxygen use. -possible acute on chronic, verses end-stage interstitial lung disease, COPD/CHF exacerbation -temp 99.1?, BP 133/65, HR 94, R 20, O2 saturation 94% on BiPAP 18/10 rate of 12, 35%. WBCs 11.9, MCV 101, neutrophils 10,400, HCT 40.4, sodium 126, Cl 90, BUN 23, potassium 5.4, glucose 137. ABGs: PH 7.4, pCO2 51.3, HC03 32, FiO2 40. Patient's chest x-ray demonstrated similar opacities in right lower lobe as compared with 2020 possible scarring or atelectasis Emphysematous changes. -a.m. labs ordered pro BNP, magnesium, CBC, CMP, PT/PTT, Repeat ABG. -patient to be monitored on tele medicine, vital signs q.4 hours, intake and output monitored Q shift, weight measure daily, diet:heart healthy. -Lasix 20 mg p.o. b.i.d., prednisone 40 mg p.o. q.dayx 5days -respiratory consult, patient to remain on BiPAP, continue patient's inhalers as prescribed Atrovent, Pulmicort, albuterol -given the patient's severe acute hypoxic respiratory failure will switch prednisone to IV Solu-Medrol 60 Q 8 -will change Lasix to 40 mg IV daily -Patient is now off Bipap, will continue oxygen by nasal cannula -Will obtain PT/OT consultation -Echo obtained November 2019 reveals EF 60-65% 2. Hyponatremia -multifactorial, will follow up in the morning 3. Elevated troponin, acute, present on admission - CK-MB 5.57, troponin 0.074, proBNP 4930. Patient's lipase, procalcitonin negative. EKG: tachycardic at a rate of 102, with nonspecific ST and T-wave changes. -repeat troponin x2 -monitor for NE, repeat troponin, proBNP in a.m. -troponin peaked at 0.092 now 0.077 -suspect demand ischemia related to underlying acute hypoxic respiratory failure 3. Essential hypertension, acute on chronic, present on admission -continue patient's amlodipine 4. Chronic back pain due to degenerative disc disease, acute on chronic, present on admission -position for comfort, continue patient's gabapentin 5. Obesity as evidence by BMI 35.9, acute on chronic, present on admission Consideration will be given to dietary counseling. 6. SOLOMON Creatinine now 1.3, baseline 1.13 Will discontinue lasix for now
--- NOTE | 2020-11-24 14:30 | PT.IIE ---
Medical History (Last Updated 11/23/20 @ 03:51 by Juliana Hatch, [facility]) Congestive heart failure Insomnia JESUS on CPAP Physical Therapy Inpatient Evaluation/Re-Eval M1 PT/OT-IP Prior Functional Status Start: 11/24/20 14:51 Freq: NEEDED Status: Active Protocol: Document 11/24/20 14:51 [facility] (Rec: 11/24/20 15:06 [facility] [id number]) Medical Review Prior Functional Status Medical History Reviewed Yes Diet/Fluid Consistency Regular Communication WNL Mobility and Gait indep w/cane Activities of Daily Living and IADL's Pt typically indep w/ADLs and does own cleaning and cooking. notes he still drives Social History Household Members none Living Arrangements Apartment/Condo Number of Floors (Floors) One Floor Number of Stairs To Enter/Railing? full flight w/rail to enter Home Environment High Toilet,Walk in Shower Home Equipment Front Wheel Walker,Straight Cane,Shower Seat without Backrest Employment Status Retired Additional Social History Comment Has neighbors that check in on him M2 PT-IP Current Condition Start: 11/24/20 14:51 Freq: NEEDED Status: Active Protocol: Document 11/24/20 14:51 [facility] (Rec: 11/24/20 15:06 [facility] [id number]) Physical Therapy Current Condition Current Condition Evaluation Date 11/24/20 Treatment Diagnosis CPOD exac, weakness M3 PT-IP Subjective Start: 11/24/20 14:51 Freq: NEEDED Status: Active Protocol: Document 11/24/20 14:51 [facility] (Rec: 11/24/20 15:06 [facility] [id number]) Subjective Physical Therapy Visit Type Type Initial Evaluation Visit Start Time 13:45 Visit Stop Time 14:13 Total Visit Minutes 28 Number of COLD WORKING INSPECTOR Visits 0 Physical Therapy Visit Comments Patient Comments Agreeable to PT M4 PT-IP Mobility and Gait Start: 11/24/20 14:51 Freq: NEEDED Status: Active Protocol: Document 11/24/20 14:51 [facility] (Rec: 11/24/20 15:06 [facility] [id number]) PT-Bed Mobility Assessment Supine to Sit Supine to Sit Standby Assistance,Head of Bed Elevated,Bedrails Scooting Scooting to Edge of Bed Standby Assistance PT-Transfer Assessment Sit to and From Stand Sit to and from Stand Contact Guard Assistance Equipment Transfer Assistive Device Gait Belt,Straight Cane Orthotic/Prosthetic Devices or Brace: No Transfers Transfer Destination Chair Transfer Technique Stand Step Pivot Transfer Ability Level of Assist Contact Guard Assistance Comments Mobility Comments Supine to sit w/ HOB elevated SBA w/pt use of rails. pt scooted EOB SBA. Pt able to sit at EOB w/o assist. Cues for breathing. Pt did sit to stand CGA then took a couple steps and turned to sit in chair. Bottom wiped by PT w/pt standing SBA d/t residual BM on it. Pt sat in chair SBA and scooted back in chair SBA w/ cues. he was left with call light in reacha nd edu not to get up w/o assist. Cues fro breathing in nose and out mouth to inc O2 saturation as O2 dropped to 88% w/this activity. Gait Assessment Comments Gait Comments n/t more than transfer today. Stair Climbing Assessment Comments Stair Climbing Comments n/a PT-Balance Assessment Sitting Balance and Reactions Static Sitting Balance Ability Normal Dynamic Sitting Balance Ability Normal Standing Balance and Reactions Static Standing Balance Ability Fair Dynamic Standing Balance Ability Fair Device Used SPC M5 PT-IP Objective Assessments Start: 11/24/20 14:51 Freq: NEEDED Status: Active Protocol: Document 11/24/20 14:51 [facility] (Rec: 11/24/20 15:06 [facility] [id number]) Orientation Orientation/Cognition Level of Alertness Alert Safety Awareness Understands Safety Issues Memory Description No Deficits Noted Gross Range of Motion Lower Extremity ROM Assessment Within Functional Limits Strength Lower Extremity Strength Assessment Bilaterally Impaired Hip grossly 3+/5 Knee flex B 4+/5, ext 4-/5 Ankle 5/5 grossly M6 PT-IP Treatment Start: 11/24/20 14:51 Freq: NEEDED Status: Active Protocol: Document 11/24/20 14:51 [facility] (Rec: 11/24/20 15:06 [facility] [id number]) Physical Therapy Treatment Other Treatments Other Treatment Performed Edu re: breathing M7 PT-IP Assessment and Plan Start: 11/24/20 14:51 Freq: NEEDED Status: Active Protocol: Document 11/24/20 14:51 [facility] (Rec: 11/24/20 15:06 [facility] [id number]) PT Summary Assessment and Plan Potential Rehabilitation Potential Good Status of Condition at Evaluation Evolving Summary Impairments Strength,Balance,Coordination, Bed Mobility,Transfers,Gait, Activity Tolerance Assessment Summary Pt presents w/COPD exac w/ increasing trouble breathing until admission. he is now on 3L of O2 in hospital and has low activity tolerance w/SOB with minimal activity. He required cueing for breathing throughout mobility. He was limited to a transfer today d/ t SOB but was CGA for this w/ no LOB. HOB was kept up d/t pt being concerned re: abilityt o mobilize but did require effort even w/HOB elevated and rail use for supine to sit. he would beneift from skilled PT to wrok on mobility and train w/breathing and energy conservation strategies. Goals Bed Mobility Goal Independent Transfer Goal Independent Gait Goal Standby Assistance Gait Distance 150ft Other Goals up/down flight of stairs (13 ) SBA w/rail and cane Days to Meet Goals 6 Frequency of Treatment Frequency Of Treatment Once a Day Treatment Plan Physical Therapy Treatment Plan Bed Mobility Training,Transfer Training,Gait Training, Therapeutic Exercise,Balance Retraining,Neuromuscular Re-ed Other Recommendations and Next Treatment energy conservation, breathing Focus edu, work on gait & stairs Recommendations To Nursing Amount of Assist Needed Standby Assistance Discharge Recommendations PT Discharge Recommendations Home with Assistance,Home Health,Home vs SNF Other Discharge Recommendations If pt does not have activity tolerance for ADLs may require SNF rehab Transportation Needs at Discharge Private Vehicle
--- NOTE | 2020-11-24 14:40 | CM.DPC ---
Addendum entered by Arabella Durán LPN 11/24/20 14:54: Asked about COVID vax status as part of the d/c planning dispo option process. Pt confirms he has NOT been vaccinated. I have this chronic lung problem and I thought it might make things worse to have the vaccine. Original Note: DCP: continued: Met with pt after EMR review and discussion of case in Team Rounds. Introduced self and role. Pt is now up in bedside chair and on 3.5 L NC oxygen. PT and OT have been ordered for today. Dr. Sanderson is anticipating that pt may need snf level care before he is able to d/c to home. Discussed same with pt, who at this time is reluctant to consider this and hopes he will be able to go directly home with his friends checking in and home health services. Discussed specifics of SNF vs HH and payment options with his Medicare and Medicaid. (Admission status: INPT since admission: 11/22: confirmed by UR RN. Pt adds to information re his living situation. 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 He says he would be eligible for [employer] assist but understands that currently in [place] [employer] workers contracted under Medicaid are not readily available. Pt has been getting about independently using a sp cane when he goes outside. He does have a FWW which he does not use. His senior/disabled subsidized housing complex is next to [facility], an [facility] where his sister resides. He describes these friends/neighbors as very supportive. PCP: he says he was just assigned to a Dr. Hough/[facility]. He says the providers keep changing as they are only there for a couple of years. P: pt agreed to keep the conversation going re SNF then HH vs directly to home and HH as more is known. PT/OT notes are note yet available. Will check in again with pt tomorrow.
--- NOTE | 2020-11-24 15:30 | OT.IP.EVAL ---
Past Medical History (Last Updated 11/23/20 @ 03:51 by Juliana Hatch [facility]) Congestive heart failure History of tonsillectomy Insomnia JESUS on CPAP Surgical History (Last Updated 11/23/20 @ 03:51 by Juliana Hatch [facility]) History of tonsillectomy Occupational Therapy Inpatient Evaluation/Re-Eval M1 PT/OT-IP Prior Functional Status Start: 11/24/20 14:51 Freq: NEEDED Status: Active Protocol: Document 11/24/20 15:11 [facility] (Rec: 11/24/20 16:09 [facility] [id number]) Medical Review Prior Functional Status Medical History Reviewed Yes Diet/Fluid Consistency Regular Communication WNL Mobility and Gait indep w/cane Activities of Daily Living and IADL's Pt typically indep w/ADLs and does own cleaning and cooking. notes he still drives Social History Household Members none Living Arrangements Apartment/Condo Number of Floors (Floors) One Floor Number of Stairs To Enter/Railing? full flight w/rail to enter Home Environment High Toilet,Walk in Shower Home Equipment Front Wheel Walker,Straight Cane,Shower Seat without Backrest Employment Status Retired Additional Social History Comment Has neighbors that check in on him and assist with shopping and groceries. M2 OT-IP Current Condition Start: 11/24/20 15:50 Freq: Status: Active Protocol: Document 11/24/20 15:11 [facility] (Rec: 11/24/20 16:09 [facility] [id number]) Occupational Therapy Current Condition Current Condition Evaluation Date 11/24/20 Treatment Diagnosis CHF exacerbation, weakness M3 OT- IP Subjective and Pain Start: 11/24/20 15:50 Freq: Status: Active Protocol: Document 11/24/20 15:11 [facility] (Rec: 11/24/20 16:09 [facility] [id number]) OT- Subjective Occupational Therapy Visit Type Type Initial Evaluation Visit Start Time 15:11 Visit Stop Time 15:49 Total Visit Minutes 38 Occupational Therapy Visit Comments Patient Comments Pt agreed to get up for OT eval. Patient/Caregiver Goals To go home. OT Pain Assessment Pain When Pain Assessed At Rest Pain Present Pain Present Denied Pain M4 OT- IP ADL's Start: 11/24/20 15:50 Freq: Status: Active Protocol: Document 11/24/20 15:11 [facility] (Rec: 11/24/20 16:09 [facility] [id number]) OT [id number] Comments OT Self-Feeding Comments NOt at meal time, pt states has no issues but just does not have an appetite. OT ADL-Grooming General Evaluation Grooming Ability Standby Assistance Comments OT Grooming Comments Pt able to wash his face after set-up of wash cloth while seated. OT ADL-Oral Care Comments Oral Care Comments Not performed. OT ADL-Dressing General Eval Lower Body Dressing Ability Maximum Assistance Comments OT Dressing Comments Per pt states since he is bloated not able to reach his feet in order to do LB dressing needs. Prior pt states able to do all his ADL needs on his own and without any adaptive equipment. Able to show pt and practice use of network architect manager and sock aid so pt able to be in a better position for his breathing. Pt O2 dropped to 85% from 94% while trying to do LB dressing needs. Pt on 3.5 L of O2. OT ADL-Toileting Comments OT Toileting Comments Pt not having to go at this time. OT ADL-Bathing Comments OT Bathing Comments Pt too tired to attempt at this time. M5 OT- IP IADL's Start: 11/24/20 15:50 Freq: Status: Active Protocol: Document 11/24/20 15:11 [facility] (Rec: 11/24/20 16:09 [facility] [id number]) OT-Instrumental Activities of Daily Living Deficits IADL Deficits Identified Deficits Home Safety Awareness Awareness of Need for Assistance at Home Good Awareness Ability to Problem Solve Emergency Able to Problem Solve Situations Medication Management Medication Management No Deficits Identified Money Management Money Management No Deficits Identified Meal Preparation Meal Preparation Comments Pt may need assist du to his decreased activity tolerance. Bag Sorter Bag Sorter Comments Pt would benefit from assist. M6 OT- IP Functional Cognition Start: 11/24/20 15:50 Freq: Status: Active Protocol: Document 11/24/20 15:11 [facility] (Rec: 11/24/20 16:09 [facility] [id number]) Cognitive Factors Limiting Selfcare Function Cognitive Ability Level of Alertness Alert Patient Orientation Name,Age,Birthday,Month,Date, Year,Day of Week,Place, Situation Attention Span Ability Capable of Focused Attention, Capable of Sustained Attention Ability to Follow Commands Able to Follow One Step Commands Memory Description No Deficits Noted Safety Awareness No Deficits Noted Problem Solving Ability No deficits Noted Cognitive Comments Cognitive Assessment Comments Pt appears at baseline for needs, to continue to monitor pt for any cognitive needs. Able to go over and educate pt on energy conservations for ADl and IADl needs. OT- Vision and Hearing OT- Hearing Assessment OT- Hearing Assessment WFL OT- Vision Assessment Vision History Cataracts Visual Acuity Glasses For Reading Vision Assessment Comments Pt states his left eye is blurry at time due to cataracts but has not been able to schedule to have them done due to covid. M7 OT- IP Mobility and Balance Start: 11/24/20 15:50 Freq: Status: Active Protocol: Document 11/24/20 15:11 [facility] (Rec: 11/24/20 16:09 [facility] [id number]) OT-Transfer Assessment Sit to and From Stand Sit to and from Stand Standby Assistance Comments Mobility Comments Pt able to come to stand with SBA. Pt states felt dizzy and O2 at 92% on 3.5 L and BP no issues. OT- Gait Assessment Comments Gait Ability Comments Due to all the cords and tubing only able to come to stand at this time. OT- Balance Assessment Sitting Balance and Reactions Static Sitting Balance Ability Normal Dynamic Sitting Balance Ability Fair Standing Balance and Reactions Static Standing Balance Ability Fair M8 OT- IP Objective Assessments Start: 11/24/20 15:50 Freq: Status: Active Protocol: Document 11/24/20 15:11 [facility] (Rec: 11/24/20 16:09 [facility] [id number]) OT Gross Range of Motion Upper Extremity Range of Motion Assessment Within Functional Limits OT Strength Upper Extremity Strength Assessment Within Functional Limits Comments Strength Comments Isometric strength WFL OT Sensation Assessment Comments Summary Comments Intact for light touch M9 OT- IP Assessment and Plan Start: 11/24/20 15:50 Freq: Status: Active Protocol: Document 11/24/20 15:11 [facility] (Rec: 11/24/20 16:09 [facility] [id number]) OT Summary Assessment and Plan Potential Rehabilitation Potential Good Analytic Complexity at Evaluation Moderate Summary OT Impairments Balance,Functional Mobility, Grooming,Dressing,Toileting, Bathing,Toilet Transfers, Shower Transfers,Activity Tolerance Progress Towards Goals Slow Progress due to Medical Issues,Slow Progress due to Activity Tolerance Assessment Summary Pt MOD complexity due to CHF exacerbation and now having decreased activity tolerance and now needing assist for ADl needs. Prior pt was EDUIN for all needs at home. Pt would benefit from short skilled rehab versus home with home health pending how pt progresses. Pt is very pleasant and motivated to get better to be able to go home. Goals Grooming Goal Independent Dressing Goal Independent Toileting Goal Independent Bathing Goal Independent Toilet Transfer Goal Independent Shower Transfer Goal Independent Patient/Caregiver Education Goal Demonstrate Energy Conservation and Pacing Days to Meet Goals 15 Frequency of Treatment Frequency Of Treatment Once a Day Treatment Plan OT Treatment Plan ADL Training,Functional Mobility,Patient/Family Education,Discharge Planning Other Treatment Recommendations and Next Stand for grooming needs. Treatment Focus Discharge Recommendations OT Discharge Recommendations Home Health,SNF Rehab,Home vs SNF Transportation Needs at Discharge Private Vehicle,Wheelchair/ Cabulance
[2020-11-24] MEDS: INSULIN LISPRO 100 UNIT/ML 3ML VIAL SUBCUT (17:31)
[2020-11-24] MEDS: AMLODIPINE 5 MG TABLET 10 MG PO (20:28)
--- NOTE | 2020-11-24 21:59 | PC.NURSE ---
End of shift note: Pt maintained on 3L NC with O2 Sats 92%. Denies pain or discomfort, comfortable in chair at the bedside. Placed on Sliding Scale to control BG. Pt states that he takes no meds for his blood sugar at home and was concerned about increased readings. Explained that the steroids likely causing increase. Up to bathroom with 1 person assist.
[2020-11-25] VITALS (11 sets, daily range): BP systolic 160–178; BP diastolic 72–79; PULSE 75–110; RESP 16–33; TEMP 36.1–36.8; O2SAT 92–94
[2020-11-25] MEDS: ALBUTEROL/IPRATROPIUM 3 ML AMPUL INH ×4 (00:51→20:04)
[2020-11-25] MEDS: methylPREDNISolone 125 MG/2 ML VIAL 60 MG IV ×3 (01:31→17:18)
[2020-11-25] MEDS: TEMAZEPAM 15 MG CAPSULE PO (02:37)
[2020-11-25 05:14] LABS: Add Manual Diff / Slide Review NO; Basophils Absolute Auto 0 /uL (0-100); Basophils Percent Auto 0.1 % (0-2); Eosinophils Absolute Auto 0 /uL (0-450); Hematocrit 37.4 % (41-53); Hemoglobin 12.4 g/dL (13.5-17.5); Lymphocytes Absolute Auto 700 /uL (1100-4500); Lymphocytes Percent Auto 4.5 % (25-40); Mean Corpuscular HGB Conc 33.2 % (30-36); Mean Corpuscular Hemoglobin 33.6 PG (26-34); Mean Corpuscular Volume 101.3 fL (80-100); Monocytes Absolute Auto 1000 /uL (0-900); Monocytes Percent Auto 6.9 % (3-14); Neutrophils Absolute Auto 13300 /uL (1500-7000); Neutrophils Percent Auto 88.5 % (50-75); Platelet Count 267 X10^3/uL (150-400); Red Blood Cell Count 3.69 X10^6/uL (4.5-5.9); Red Cell Distribution Width 13.3 % (11.6-14.8)
[2020-11-25 05:15] LABS: Alanine Aminotransferase 26 IU/L (<50); Albumin 3.6 g/dL (3.5-5.0); Albumin Globulin Ratio 1.3 (1.0-2.8); Alkaline Phosphatase 57 U/L (38-126); Aspartate Aminotransferase 27 IU/L (17-59); BUN Creatinine Ratio 39.7 (6-22); Bilirubin Total 0.3 mg/dL (0.2-1.3); Blood Urea Nitrogen 56 mg/dL (9-20); Calcium 8.8 mg/dL (8.4-10.2); Carbon Dioxide 32 mmol/L (22-32); Chloride 90 mmol/L (98-107); Estimated Glomerular Filt Rate 48.6 mL/min (>60); Globulin 2.7 g/dL (1.7-4.1); Glucose 178 mg/dL (80-110); HEMOLYSIS < 15 (0-50); Potassium 5.1 mmol/L (3.4-5.1); Sodium 126 mmol/L (137-145); Total Protein 6.3 g/dL (6.3-8.2)
[2020-11-25 05:24] LABS: NT-proBNP (BNP-Adult 18+) 2350 pg/mL (<450)
[2020-11-25] MEDS: lisinopriL 20 MG TABLET 40 MG PO (08:29)
[2020-11-25] MEDS: ENOXAPARIN 40 MG/0.4 ML SYRINGE SUBCUT (08:29)
[2020-11-25] MEDS: SODIUM CHLORIDE 0.9% FLUSH 10 ML IV ×3 (08:30→21:23)
[2020-11-25] MEDS: INSULIN LISPRO 100 UNIT/ML 3ML VIAL SUBCUT ×3 (08:31→17:17)
--- NOTE | 2020-11-25 09:26 | PT.IPTN ---
Current Diagnoses Acute respiratory failure with hypercapnia (11/22/20) Physical Therapy Treatment Note M2 PT-IP Current Condition Start: 11/24/20 14:51 Freq: NEEDED Status: Active Protocol: Document 11/24/20 14:51 [facility] (Rec: 11/24/20 15:06 [facility] [id number]) Physical Therapy Current Condition Current Condition Evaluation Date 11/24/20 Treatment Diagnosis CPOD exac, weakness M3 PT-IP Subjective Start: 11/24/20 14:51 Freq: NEEDED Status: Active Protocol: Document 11/25/20 09:07 SP (Rec: 11/25/20 11:44 SP [id number]) Subjective Physical Therapy Visit Type Type Treatment Note Visit Start Time 09:07 Visit Stop Time 09:26 Total Visit Minutes 19 Notes Vitals taken throughout tx: sit EOB: BP 205/75, HR 110bpm, SaO2 89% on 3L, 90% with breath and hands on belly feedback. seated post SPT to chair: BP 209/90 HR 110 bpm SaO2 84-87% seated in chair 3 min rest: BP 208/91, HR 105, SaO2 88-90% with breath. Number of APPLICATION DBA Visits 1 Physical Therapy Visit Comments Patient Comments Agreeable to PT M4 PT-IP Mobility and Gait Start: 11/24/20 14:51 Freq: NEEDED Status: Active Protocol: Document 11/25/20 09:07 SP (Rec: 11/25/20 11:44 SP [id number]) PT-Bed Mobility Assessment Supine to Sit Supine to Sit Standby Assistance,Head of Bed Elevated,Bedrails Scooting Scooting to Edge of Bed Standby Assistance PT-Transfer Assessment Sit to and From Stand Sit to and from Stand Contact Guard Assistance,1 Person Assistance,Use of Upper Extremities Equipment Transfer Assistive Device Gait Belt,Straight Cane Orthotic/Prosthetic Devices or Brace: No Transfers Transfer Destination Chair Transfer Technique Stand Step Pivot Transfer Ability Level of Assist Contact Guard Assistance Comments Mobility Comments Pt education given for slow controlled breath throughout tx to allow SaO2 >90%, improved with self feedback instruction of BUE on abdomen. Elevated supine (70 deg) >sit , scoot to EOB SBA, sit>stand, SPT using SPC and APPLICATION DBA managing all tubing CGA,stable but very tired heavy BLE repositioning and RUE heavy WB on SPC, Min A slow descent into chair. Pt able to scoot self back inchair. Pt had call light and all needs in reach before left. Will continue to assess progress, decreased strength and endurance and elevated BP not safet to mobilize further, notified nursing awareness. Recommending continue need for acute PT. Gait Assessment Comments Gait Comments Did not progress further than SPT bed> chair CGA using SPC due to decreased strength and elevated BP but pt wanted to get up in chair, out of bed. Stair Climbing Assessment Comments Stair Climbing Comments Not able to assess, not safet at this time. Will need to assess 1 flight stairs before DC home to be able to enter home. PT-Balance Assessment Sitting Balance and Reactions Static Sitting Balance Ability Normal Dynamic Sitting Balance Ability Normal Standing Balance and Reactions Static Standing Balance Ability Fair Dynamic Standing Balance Ability Fair Device Used SPC M5 PT-IP Objective Assessments Start: 11/24/20 14:51 Freq: NEEDED Status: Active Protocol: Document 11/24/20 14:51 [facility] (Rec: 11/24/20 15:06 [facility] [id number]) Orientation Orientation/Cognition Level of Alertness Alert Safety Awareness Understands Safety Issues Memory Description No Deficits Noted Gross Range of Motion Lower Extremity ROM Assessment Within Functional Limits Strength Lower Extremity Strength Assessment Bilaterally Impaired Hip grossly 3+/5 Knee flex B 4+/5, ext 4-/5 Ankle 5/5 grossly M6 PT-IP Treatment Start: 11/24/20 14:51 Freq: NEEDED Status: Active Protocol: Document 11/25/20 09:07 SP (Rec: 11/25/20 11:44 SP [id number]) Physical Therapy Treatment Other Treatments Other Treatment Performed Edu re: breathing, hands on Abdomen for self feedback, improved saturation. M7 PT-IP Assessment and Plan Start: 11/24/20 14:51 Freq: NEEDED Status: Active Protocol: Document 11/25/20 09:07 SP (Rec: 11/25/20 11:44 SP [id number]) PT Summary Assessment and Plan Potential Rehabilitation Potential Good Status of Condition at Evaluation Evolving Summary Impairments Strength,Balance,Coordination, Bed Mobility,Transfers,Gait, Activity Tolerance Progress Towards Goals Slow Progress due to Medical Issues,Slow Progress due to Activity Tolerance Assessment Summary Pt presents w/COPD exac w/ increasing trouble breathing throughout activity, elevated BP during this tx. Required SBA during bed mob, CGA during transfer bed> chair using SPC . Education on proper breath for improved SaO2 90% on 3L. Will continue to assess progress, recommending continued acute PT. Goals Bed Mobility Goal Independent Transfer Goal Independent Gait Goal Standby Assistance Gait Distance 150ft Other Goals up/down flight of stairs (13 ) SBA w/rail and cane Days to Meet Goals 6 Frequency of Treatment Frequency Of Treatment Once a Day Treatment Plan Physical Therapy Treatment Plan Bed Mobility Training,Transfer Training,Gait Training, Therapeutic Exercise,Balance Retraining,Neuromuscular Re-ed Other Recommendations and Next Treatment energy conservation, breathing Focus edu, work on gait & stairs Recommendations To Nursing Amount of Assist Needed 1 Person Assist Discharge Recommendations PT Discharge Recommendations Home with Assistance,Home Health,Home vs SNF Other Discharge Recommendations If pt does not have activity tolerance for ADLs may require SNF rehab Transportation Needs at Discharge Private Vehicle
[2020-11-25] MEDS: BUDESONIDE 0.5 MG/2 ML NEB INH ×2 (10:51→20:04)
--- NOTE | 2020-11-25 12:18 | CM.DPC ---
DCP: continued: case discussed in Team Rounds with Dr. Sanderson and Jovany/PT director. All note that pt remains resistive of snf plan but is open to idea of HH services and home supplemental oxygen. Jovany stated that the therapy team are supportive of a home with HH option at d/c. Pt is slowly improving. Remains off BIPAP but continues to need o2 at about 3 L. Met with pt in followup. He confirms he has no intention of considering a snf plan. HH agency choice list discussed: decision: [facility] Referral to [facility]/accepts with d/c anticipated in the next few days. Face sheet with updates, Face/Face document signed by Dr. Sanderson and orders for NR/PT/OT/ENVIRONMENTAL RESEARCH SCIENTIST (to help in future planning and assist in getting on the [facility] caregiver at home program) are faxed now to [facility]. [facility] will follow to sent clinical info including Dr. Sanderson's progress note of today when this is available. Pt continues to say he will have needed help from friends/neighbors. He says Maribel Arevalo will be providing a ride home. He has an appt set up with Dr. Vamshi Hough/[facility] in [facility] on 11/29. He says he is not sure he will keep this since I will just have gotten home. DCP team will continue to follow. P: at this time: home when stable for same with above specifics.
--- NOTE | 2020-11-25 13:02 | CM.DPNOTE ---
Faxed Referral packet including 11/25/[address] Sanderson to [facility]. Received fax conf. Dilcia Parsons CM Asst.
--- NOTE | 2020-11-25 14:14 | PC.NURSE ---
Am shift Pt is up to chair with PT, comfortable on 3.5L NC. Pt is feeling like hes able to move air better. Deconditioned. Pt is needing assist to get OOB and work to dc home.
--- NOTE | 2020-11-25 14:15 | OT.IP.TRT ---
Current Diagnoses Acute respiratory failure with hypercapnia (11/22/20) Occupational Therapy Treatment Note M2 OT-IP Current Condition Start: 11/24/20 15:50 Freq: Status: Active Protocol: Document 11/24/20 15:11 [facility] (Rec: 11/24/20 16:09 [facility] [id number]) Occupational Therapy Current Condition Current Condition Evaluation Date 11/24/20 Treatment Diagnosis CHF exacerbation, weakness M3 OT- IP Subjective and Pain Start: 11/24/20 15:50 Freq: Status: Active Protocol: Document 11/25/20 14:34 [facility] (Rec: 11/25/20 14:39 [facility] [id number]) OT- Subjective Occupational Therapy Visit Type Type Treatment Note Visit Start Time 14:15 Visit Stop Time 14:24 Total Visit Minutes 9 Occupational Therapy Visit Comments Patient Comments Pt not wanting to get up to do OT eval but agreed to go over LB dressing equipment which was issued to pt. Patient/Caregiver Goals TO go home. OT Pain Assessment Pain When Pain Assessed At Rest Pain Present Pain Present Denied Pain M4 OT- IP ADL's Start: 11/24/20 15:50 Freq: Status: Active Protocol: Document 11/25/20 14:34 [facility] (Rec: 11/25/20 14:39 [facility] [id number]) OT ADL-Dressing Comments OT Dressing Comments Went over LB dressing equipment and able to issue to pt. Pt agreed to practice tomorrow with OT. M5 OT- IP IADL's Start: 11/24/20 15:50 Freq: Status: Active Protocol: Document 11/24/20 15:11 [facility] (Rec: 11/24/20 16:09 [facility] [id number]) OT-Instrumental Activities of Daily Living Deficits IADL Deficits Identified Deficits Home Safety Awareness Awareness of Need for Assistance at Home Good Awareness Ability to Problem Solve Emergency Able to Problem Solve Situations Medication Management Medication Management No Deficits Identified Money Management Money Management No Deficits Identified Meal Preparation Meal Preparation Comments Pt may need assist du to his decreased activity tolerance. Ion Implant Machine Operator Ion Implant Machine Operator Comments Pt would benefit from assist. OT- Hearing Assessment OT- Hearing Assessment WFL OT- Vision Assessment Vision History Cataracts Visual Acuity Glasses For Reading Vision Assessment Comments Pt states his left eye is blurry at time due to cataracts but has not been able to schedule to have them done due to covid. M8 OT- IP Objective Assessments Start: 11/24/20 15:50 Freq: Status: Active Protocol: Document 11/24/20 15:11 [facility] (Rec: 11/24/20 16:09 [facility] [id number]) OT Gross Range of Motion Upper Extremity Range of Motion Assessment Within Functional Limits OT Strength Upper Extremity Strength Assessment Within Functional Limits Comments Strength Comments Isometric strength WFL OT Sensation Assessment Comments Summary Comments Intact for light touch M9 OT- IP Assessment and Plan Start: 11/24/20 15:50 Freq: Status: Active Protocol: Document 11/25/20 14:34 [facility] (Rec: 11/25/20 14:39 [facility] [id number]) OT Summary Assessment and Plan Potential Rehabilitation Potential Good Analytic Complexity at Evaluation Moderate Summary OT Impairments Balance,Functional Mobility, Grooming,Dressing,Toileting, Bathing,Toilet Transfers, Shower Transfers,Activity Tolerance Progress Towards Goals Slow Progress due to Medical Issues,Slow Progress due to Activity Tolerance,Slow Progress due to Cognition Assessment Summary Pt agreed to go over LB dressing equipment which was issued to pt. Pt insistent on wanting to go home when medically stable. Pt would benefit from home zeus bath aid in addition to OT if going home. In addition tomorrow to look at doing a cognitive assessment. Pt feels that he is thinking well but just main issue is that he is not been able to sleep. Goals Grooming Goal Independent Dressing Goal Independent Toileting Goal Independent Bathing Goal Independent Toilet Transfer Goal Independent Shower Transfer Goal Independent Patient/Caregiver Education Goal Demonstrate Energy Conservation and Pacing Days to Meet Goals 15 Frequency of Treatment Frequency Of Treatment Once a Day Treatment Plan OT Treatment Plan ADL Training,Functional Mobility,Patient/Family Education,Discharge Planning Other Treatment Recommendations and Next Stand for grooming needs, LB Treatment Focus dressing, do SLUMS if appropriate Discharge Recommendations OT Discharge Recommendations Home Health,SNF Rehab,Home vs SNF Transportation Needs at Discharge Private Vehicle,Wheelchair/ Cabulance
--- NOTE | 2020-11-25 18:31 | PM.PN.1 ---
Subjective Subjective Interval history: Patient is a 79-year-old male who was admitted to the hospital for acute respiratory failure secondary to COPD. He has made significant improvement. He is no longer required BiPAP. The patient is still hypoxic at rest. He is requiring at least 2-3 L he is somewhat unsteady with ambulation but very much would like to go home and is interested in getting gabino well he is in his home. Exam Vital Signs (past 8 hours): - 11/25/20 10:57 11/25/20 12:00 11/25/20 14:57 Temperature 98.2 F Pulse Rate 100 H 94 H 110 H Respiratory Rate 18 24 18 Blood Pressure 178/79 H Pulse Oximetry 92 11/25/20 15:45 Temperature 97.0 F L Pulse Rate 87 Respiratory Rate 20 Blood Pressure 171/76 H Pulse Oximetry 93 Fraction of Inspired Oxygen 30 Oxygen Delivery Method Nasal Cannula Oxygen Flow Rate 3 Narrative Exam Narrative: Elderly ill-appearing male sitting in a chair Eyes Other: Sclerae anicteric, extraocular muscles are intact, no conjunctival ejection Resp Other: Lungs: Decreased breath sounds, scattered rhonchi bilaterally with end-expiratory wheezing Cardio Other: Cardiac exam: Regular rate and rhythm normal S1-S2 GI Other: Abdomen: Soft nontender nondistended Extrem Other: Extremities: No edema Objective Labs Result Diagrams: 11/25/20 04:50 11/25/20 04:50 Labs: Laboratory Results - last 24 hr 11/25/20 11/25/20 11/25/20 04:50 04:50 04:50 WBC 15.0 H RBC 3.69 L Hgb 12.4 L Hct 37.4 L MCV 101.3 H MCH 33.6 MCHC 33.2 RDW 13.3 Plt Count 267 Neut % (Auto) 88.5 H Lymph % (Auto) 4.5 L [place] % (Auto) 6.9 Eos % (Auto) 0.0 L Baso % (Auto) 0.1 Neut # (Auto) 90023 H Lymph # (Auto) 700 L [place] # (Auto) 1000 H Eos # (Auto) 0 Baso # (Auto) 0 Sodium 126 L Potassium 5.1 Chloride 90 L Carbon Dioxide 32 BUN 56 H Creatinine 1.41 H Estimated GFR 48.6 L BUN/Creatinine Ratio 39.7 H Glucose 178 H Calcium 8.8 Total Bilirubin 0.3 AST 27 ALT 26 Alkaline Phosphatase 57 NT-Pro-B Natriuret Pep 2350 H Total Protein 6.3 Albumin 3.6 Globulin 2.7 Albumin/Globulin Ratio 1.3 [facility] Medical History (Updated 11/23/20 @ 03:51 by JEAN CLAUDE Ann-TAYLOR) Congestive heart failure Insomnia JESUS on CPAP Surgical History (Updated 11/23/20 @ 03:51 by JESSE Ann) History of tonsillectomy Family History Mother Diabetes mellitus Father Diabetes mellitus Social History household members: none lives independently: Yes alcohol intake: current Assessment & Plan Assessment & Plan narrative: Acute hypercapnic respiratory failure with hypoxia and COPD exacerbation in the possible setting acute CHF exacerbation, acute on chronic, the setting of chronic JESUS with CPAP usage, present on admission, with NO home oxygen use. -possible acute on chronic, verses end-stage interstitial lung disease, COPD/CHF exacerbation -temp 99.1?, BP 133/65, HR 94, R 20, O2 saturation 94% on BiPAP 18/10 rate of 12, 35%. WBCs 11.9, MCV 101, neutrophils 10,400, HCT 40.4, sodium 126, Cl 90, BUN 23, potassium 5.4, glucose 137. ABGs: PH 7.4, pCO2 51.3, HC03 32, FiO2 40. Patient's chest x-ray demonstrated similar opacities in right lower lobe as compared with 2020 possible scarring or atelectasis Emphysematous changes. -a.m. labs ordered pro BNP, magnesium, CBC, CMP, PT/PTT, Repeat ABG. -patient to be monitored on tele medicine, vital signs q.4 hours, intake and output monitored Q shift, weight measure daily, diet:heart healthy. -Lasix 20 mg p.o. b.i.d., prednisone 40 mg p.o. q.dayx 5days -respiratory consult, patient to remain on BiPAP, continue patient's inhalers as prescribed Atrovent, Pulmicort, albuterol -given the patient's severe acute hypoxic respiratory failure will switch prednisone to IV Solu-Medrol 60 Q 8 -will change Lasix to 40 mg IV daily -Patient is now off Bipap, will continue oxygen by nasal cannula -Will obtain PT/OT consultation -Echo obtained November 2019 reveals EF 60-65% -patient remains hypoxic, will need to discharge home on home oxygen, he would benefit from an outpatient sleep study as well. -continue 2 L of oxygen 2. Hyponatremia -multifactorial, will follow up in the morning 3. Elevated troponin, acute, present on admission - CK-MB 5.57, troponin 0.074, proBNP 4930. Patient's lipase, procalcitonin negative. EKG: tachycardic at a rate of 102, with nonspecific ST and T-wave changes. -repeat troponin x2 -monitor for [place], repeat troponin, proBNP in a.m. -troponin peaked at 0.092 now 0.077 -suspect demand ischemia related to underlying acute hypoxic respiratory failure 3. Essential hypertension, acute on chronic, present on admission -continue patient's amlodipine -will had beta-laurie 25 mg twice daily 4. Chronic back pain due to degenerative disc disease, acute on chronic, present on admission -position for comfort, continue patient's gabapentin 5. Obesity as evidence by BMI 35.9, acute on chronic, present on admission Consideration will be given to dietary counseling. 6. SOLOMON Creatinine now 1.3, baseline 1.13 Will discontinue lasix for now Anticipate discharge home with home health and possible collapse worker's in 1-2 days
[2020-11-25] MEDS: METOPROLOL ER 25 MG TABLET PO (21:23)
[2020-11-25] MEDS: AMLODIPINE 5 MG TABLET 10 MG PO (21:23)
[2020-11-26] VITALS (17 sets, daily range): BP systolic 135–170; BP diastolic 64–75; PULSE 66–89; RESP 16–24; TEMP 36.1–36.7; O2SAT 91–96
[2020-11-26] MEDS: methylPREDNISolone 125 MG/2 ML VIAL 60 MG IV (02:12)
[2020-11-26] MEDS: ALBUTEROL/IPRATROPIUM 3 ML AMPUL INH ×6 (03:27→23:25)
[2020-11-26] MEDS: TEMAZEPAM 15 MG CAPSULE PO (03:44)
[2020-11-26] MEDS: diphenhydrAMINE 25 MG TABLET PO (03:44)
[2020-11-26 05:10] LABS: BUN Creatinine Ratio 46.2 (6-22); Blood Urea Nitrogen 60 mg/dL (9-20); Calcium 8.3 mg/dL (8.4-10.2); Carbon Dioxide 30 mmol/L (22-32); Chloride 90 mmol/L (98-107); Estimated Glomerular Filt Rate 53.4 mL/min (>60); Glucose 186 mg/dL (80-110); HEMOLYSIS < 15 (0-50); Potassium 5.2 mmol/L (3.4-5.1); Sodium 125 mmol/L (137-145)
[2020-11-26] MEDS: BUDESONIDE 0.5 MG/2 ML NEB INH ×2 (09:09→19:18)
--- NOTE | 2020-11-26 09:18 | PM.PN.1 ---
Subjective Subjective Interval history: The patient i for acute respiratory failure secondary to COPD he continues to make slow but steady improvement. He is still wheezing today. He feels fairly weak and has not significantly ambulated. He continues to desaturate with minimal activity. Patient reports he was able to sleep better last evening Exam Vital Signs (past 8 hours): - 11/26/20 03:27 11/26/20 04:05 11/26/20 07:00 Temperature 97.0 F L 97.3 F L Pulse Rate 80 68 67 Respiratory Rate 20 22 24 Blood Pressure 170/75 H 135/64 Pulse Oximetry 94 93 95 11/26/20 09:12 Temperature Pulse Rate 86 Respiratory Rate 20 Blood Pressure Pulse Oximetry 91 Fraction of Inspired Oxygen 30 Oxygen Delivery Method Nasal Cannula Oxygen Flow Rate 3 Narrative Exam Narrative: Frail elderly male lying in bed Eyes Other: HEENT: Normocephalic atraumatic, sclerae anicteric, there is no conjunctival injection Resp Other: Lungs: Decreased breath sounds with end-expiratory wheezing and scattered rhonchi Cardio Other: Cardiac exam: Regular rate and rhythm normal S1-S2 GI Other: Abdomen: Soft nontender nondistended Extrem Other: Extremities: No edema Objective Labs Result Diagrams: 11/25/20 04:50 11/26/20 04:35 Labs: Laboratory Results - last 24 hr 11/26/20 04:35 Sodium 125 L Potassium 5.2 H Chloride 90 L Carbon Dioxide 30 BUN 60 H Creatinine 1.30 H Estimated GFR 53.4 L BUN/Creatinine Ratio 46.2 H Glucose 186 H Calcium 8.3 L PFSH Medical History (Updated 11/23/20 @ 03:51 by JESSE Ann) Congestive heart failure Insomnia JESUS on CPAP Surgical History (Updated 11/23/20 @ 03:51 by JESSE Ann) History of tonsillectomy Family History Mother Diabetes mellitus Father Diabetes mellitus Social History household members: none lives independently: Yes alcohol intake: current Assessment & Plan Assessment & Plan narrative: Acute hypercapnic respiratory failure with hypoxia and COPD exacerbation in the possible setting acute CHF exacerbation, acute on chronic, the setting of chronic JESUS with CPAP usage, present on admission, with NO home oxygen use. -possible acute on chronic, verses end-stage interstitial lung disease, COPD/CHF exacerbation -temp 99.1?, BP 133/65, HR 94, R 20, O2 saturation 94% on BiPAP 18/10 rate of 12, 35%. WBCs 11.9, MCV 101, neutrophils 10,400, HCT 40.4, sodium 126, Cl 90, BUN 23, potassium 5.4, glucose 137. ABGs: PH 7.4, pCO2 51.3, HC03 32, FiO2 40. Patient's chest x-ray demonstrated similar opacities in right lower lobe as compared with 2020 possible scarring or atelectasis Emphysematous changes. -patient has chronic severe emphysema, he was on oxygen at home although intermittent -he continues to have significant hypoxemia and very likely will need to use oxygen both at home with activity and at rest -he has made significant improvement, however he continues to be bronchospastic and wheezing -will discontinue IV Solu-Medrol and start oral prednisone -will continue nebulized treatment 2. Hyponatremia -multifactorial, will follow up in the morning -suspect this is multifactorial, will place the patient on 1200 cc fluid restriction 3. Elevated troponin, acute, present on admission - CK-MB 5.57, troponin 0.074, proBNP 4930. Patient's lipase, procalcitonin negative. EKG: tachycardic at a rate of 102, with nonspecific ST and T-wave changes. -repeat troponin x2 -monitor for MN, repeat troponin, proBNP in a.m. -troponin peaked at 0.092 now 0.077 -suspect demand ischemia related to underlying acute hypoxic respiratory failure 3. Essential hypertension, acute on chronic, present on admission -continue patient's amlodipine -will had beta-laurie 25 mg twice daily -continue lisinopril 4. Chronic back pain due to degenerative disc disease, acute on chronic, present on admission -position for comfort, continue patient's gabapentin 5. Obesity as evidence by BMI 35.9, acute on chronic, present on admission Consideration will be given to dietary counseling. 6. SOLOMON Creatinine now 1.3, baseline 1.13 Will discontinue lasix for now Will continue to follow closely, suspect elevated creatinine related to diuresis on admission 7. Patient is significantly deconditioned, he is too weak to return home at this time. Will continue physical therapy and occupational therapy. The patient is unable to be discharged tomorrow would consider short course of rehabilitation prior to returning home
[2020-11-26] MEDS: INSULIN LISPRO 100 UNIT/ML 3ML VIAL SUBCUT ×2 (09:24→12:46)
[2020-11-26] MEDS: METOPROLOL ER 25 MG TABLET PO ×2 (09:28→20:30)
[2020-11-26] MEDS: lisinopriL 20 MG TABLET 40 MG PO (09:28)
[2020-11-26] MEDS: SODIUM CHLORIDE 0.9% FLUSH 10 ML IV ×2 (09:28→20:39)
[2020-11-26] MEDS: ENOXAPARIN 40 MG/0.4 ML SYRINGE SUBCUT (09:28)
--- NOTE | 2020-11-26 11:14 | OT.IP.TRT ---
Current Diagnoses Acute respiratory failure with hypercapnia (11/22/20) Occupational Therapy Treatment Note M2 OT-IP Current Condition Start: 11/24/20 15:50 Freq: Status: Active Protocol: Document 11/24/20 15:11 [facility] (Rec: 11/24/20 16:09 [facility] [id number]) Occupational Therapy Current Condition Current Condition Evaluation Date 11/24/20 Treatment Diagnosis CHF exacerbation, weakness M3 OT- IP Subjective and Pain Start: 11/24/20 15:50 Freq: Status: Active Protocol: Document 11/26/20 16:58 [facility] (Rec: 11/26/20 17:10 R [id number]) OT- Subjective Occupational Therapy Visit Type Type Progress Note Visit Start Time 10:48 Visit Stop Time 11:14 Total Visit Minutes 26 OT Pain Assessment Pain When Pain Assessed At Rest Pain Present Pain Present Denied Pain M4 OT- IP ADL's Start: 11/24/20 15:50 Freq: Status: Active Protocol: Document 11/25/20 14:34 [facility] (Rec: 11/25/20 14:39 [facility] [id number]) OT ADL-Dressing Comments OT Dressing Comments Went over LB dressing equipment and able to issue to pt. Pt agreed to practice tomorrow with OT. M5 OT- IP IADL's Start: 11/24/20 15:50 Freq: Status: Active Protocol: Document 11/24/20 15:11 [facility] (Rec: 11/24/20 16:09 [facility] [id number]) OT-Instrumental Activities of Daily Living Deficits IADL Deficits Identified Deficits Home Safety Awareness Awareness of Need for Assistance at Home Good Awareness Ability to Problem Solve Emergency Able to Problem Solve Situations Medication Management Medication Management No Deficits Identified Money Management Money Management No Deficits Identified Meal Preparation Meal Preparation Comments Pt may need assist du to his decreased activity tolerance. Medical Engineer Medical Engineer Comments Pt would benefit from assist. M6 OT- IP Functional Cognition Start: 11/24/20 15:50 Freq: Status: Active Protocol: Document 11/26/20 16:58 [facility] (Rec: 11/26/20 17:10 [facility] [id number]) Cognitive Factors Limiting Selfcare Function Cognitive Ability Level of Alertness Alert Patient Orientation Name,Age,Birthday,Month,Date, Year,Day of Week,Place, Situation Attention Span Ability Unable to Focus,Unable to Sustain Attention Ability to Follow Commands Able to Follow One Step Commands with Increased Time, Able to Follow One Step Commands with Repetition Cognitive Tests SLUMS Pt performed the SLUMS with a total score of 21/30. Pt was only able to state 8 animals in 1 minute and remember 2 of the 5 objects on delayed recall. Pt missed 2 points for the clock numbering, and one of the listening comprehension questions. A score of 21 puts the patient at the low end of the mild neurocognitive disorder scoring. Cognitive Comments Cognitive Assessment Comments Pt needed max a to maintain topic maintence as SNF vs home was discussed. M7 OT- IP Mobility and Balance Start: 11/24/20 15:50 Freq: Status: Active Protocol: Document 11/24/20 15:11 [facility] (Rec: 11/24/20 16:09 [facility] [id number]) OT-Transfer Assessment Sit to and From Stand Sit to and from Stand Standby Assistance Comments Mobility Comments Pt able to come to stand with SBA. Pt states felt dizzy and O2 at 92% on 3.5 L and BP no issues. OT- Gait Assessment Comments Gait Ability Comments Due to all the cords and tubing only able to come to stand at this time. OT- Balance Assessment Sitting Balance and Reactions Static Sitting Balance Ability Normal Dynamic Sitting Balance Ability Fair Standing Balance and Reactions Static Standing Balance Ability Fair M8 OT- IP Objective Assessments Start: 11/24/20 15:50 Freq: Status: Active Protocol: Document 11/24/20 15:11 [facility] (Rec: 11/24/20 16:09 [facility] [id number]) OT Gross Range of Motion Upper Extremity Range of Motion Assessment Within Functional Limits OT Strength Upper Extremity Strength Assessment Within Functional Limits Comments Strength Comments Isometric strength WFL OT Sensation Assessment Comments Summary Comments Intact for light touch M9 OT- IP Assessment and Plan Start: 11/24/20 15:50 Freq: Status: Active Protocol: Document 11/26/20 16:58 [facility] (Rec: 11/26/20 17:10 [facility] [id number]) OT Summary Assessment and Plan Potential Rehabilitation Potential Good Analytic Complexity at Evaluation Moderate Summary OT Impairments Balance,Functional Mobility, Grooming,Dressing,Toileting, Bathing,Toilet Transfers, Shower Transfers,Activity Tolerance Progress Towards Goals Slow Progress due to Medical Issues,Slow Progress due to Activity Tolerance,Slow Progress due to Cognition Assessment Summary Pt participated in cog assessment but declined other activity at this time. Pt's SLUMS score was 21/30. Pt discussed SNF vs home initially very strongly refusing SNF but said he would think about it by the end of the conversation. Pt is concerned about leaving his apartment. Goals Grooming Goal Independent Dressing Goal Independent Toileting Goal Independent Bathing Goal Independent Toilet Transfer Goal Independent Shower Transfer Goal Independent Patient/Caregiver Education Goal Demonstrate Energy Conservation and Pacing Days to Meet Goals 15 Frequency of Treatment Frequency Of Treatment Once a Day Treatment Plan OT Treatment Plan ADL Training,Functional Mobility,Patient/Family Education,Discharge Planning Other Treatment Recommendations and Next Stand for grooming needs, LB Treatment Focus dressing Discharge Recommendations OT Discharge Recommendations Home Health,SNF Rehab,Home vs SNF Transportation Needs at Discharge Private Vehicle,Wheelchair/ Cabulance
--- NOTE | 2020-11-26 12:20 | PT.IPTN ---
Current Diagnoses Acute respiratory failure with hypercapnia (11/22/20) Physical Therapy Treatment Note M2 PT-IP Current Condition Start: 11/24/20 14:51 Freq: NEEDED Status: Active Protocol: Document 11/24/20 14:51 [facility] (Rec: 11/24/20 15:06 [facility] [id number]) Physical Therapy Current Condition Current Condition Evaluation Date 11/24/20 Treatment Diagnosis CPOD exac, weakness M3 PT-IP Subjective Start: 11/24/20 14:51 Freq: NEEDED Status: Active Protocol: Document 11/26/20 11:45 [facility] (Rec: 11/26/20 14:12 [facility] [id number]) Subjective Physical Therapy Visit Type Type Treatment Note Visit Start Time 11:45 Visit Stop Time 12:20 Total Visit Minutes 35 Notes Vitals taken during and post mobility: SaO2 during standing activities: low 90s at rest, 84-87%> 89-90% with ed breath to reduce + SOB on 2L during standing at sink. Seated in chair after standing activitiy/steps: 177/87, SaO2 84% with breath increase to 90-91% within 2 min. Number of COREMAKER APPRENTICE Visits 2 Physical Therapy Visit Comments Patient Comments Agreeable to PT M4 PT-IP Mobility and Gait Start: 11/24/20 14:51 Freq: NEEDED Status: Active Protocol: Document 11/26/20 11:45 [facility] (Rec: 11/26/20 14:12 [facility] [id number]) PT-Transfer Assessment Sit to and From Stand Sit to and from Stand Standby Assistance,1 Person Assistance,Use of Upper Extremities Equipment Transfer Assistive Device Gait Belt,Straight Cane Orthotic/Prosthetic Devices or Brace: No Transfers Transfer Destination Chair,Toilet Transfer Technique ambulated using SPC Transfer Ability Level of Assist Contact Guard Assistance,1 Person Assistance,Use of Upper Extremities Comments Mobility Comments Pt in bathroom when arrived w/ call light in reach HEEL TRIMMER at nursing station awaiting call light use. Sitting balance on toilet S, stable and able to complete pericare self. Sit<> stand SBA using grap bar then SPC. Pt ambulated to sink 15 ft sBA with COREMAKER APPRENTICE managing O2 tubing. PT stood at sink with noted contact for stability and intermittent cuing for proper breath to decrease + SOB. Pt agreeable to assess step mgt knowing 1 full flight (approx 10 stairs B HR to get to appt). Pt completed 8/10 step using portable step and bed rail for BUE support CGA, cued for stopped stand rest after every 2 steps for breathing recovery 84- 89% on 2L. Pt unable to complete 10 steps due to increase breath rate and not recovering Lisseth 2 into 90s. Pt returned to chair5 ft usign SPC and managing O2 tubing self CG-SBA . COREMAKER APPRENTICE discussed possible recommendation of further skilled therapy suggested SNF to progress strength before returning home. Pt stated didn 't like the idea of SNF but sees that isn't back to normal mobility. Pt had call light and all needs in reach before left. Gait Assessment Gait Gait Assistance Required: Standby Assistance,Contact Guard Assist,1 Person Assist Distance (Feet) 15 Able to Maintain Weight Bearing Status Yes During Gait Assistive Devices Assistive Device Gait Belt,Straight Cane Orthotic/Prosthetic Devices or Brace: No Gait Deviations General Gait Pattern Antalgic,Decreased Stride Length,Decreased Feet Clearance,Narrow Based Gait Factors Limiting Gait Function Factors Limiting Gait Function Decreased Activity Tolerance, Decreased Strength,Poor Balance,Poor Safety Awareness, Respiratory Distress Comments Gait Comments see mobility comments Stair Climbing Assessment Evaluation Level of Assist On Stairs Contact Guard Assistance,1 Person Assistance Devices Stair Climbing Assistive Devices Left Railing,Right Railing Technique/Endurance Stair Climbing Direction Ascend and Descend Stair Climbing Technique Step to Step Number of Steps Climbed 1 Stair Climbing Set # Repetitions (reps) 8 Comments Stair Climbing Comments Used portable step w/ rail in room positioned at end of bed, used footboard rail for self support mgt, step to CGA x8 steps w/ stop rest after each 2 steps over/ back for recovery +SOB and improve saturation. PT-Balance Assessment Sitting Balance and Reactions Static Sitting Balance Ability Normal Dynamic Sitting Balance Ability Normal Standing Balance and Reactions Static Standing Balance Ability Fair Dynamic Standing Balance Ability Fair Device Used SPC M5 PT-IP Objective Assessments Start: 11/24/20 14:51 Freq: NEEDED Status: Active Protocol: Document 11/24/20 14:51 [facility] (Rec: 11/24/20 15:06 [facility] [id number]) Orientation Orientation/Cognition Level of Alertness Alert Safety Awareness Understands Safety Issues Memory Description No Deficits Noted Gross Range of Motion Lower Extremity ROM Assessment Within Functional Limits Strength Lower Extremity Strength Assessment Bilaterally Impaired Hip grossly 3+/5 Knee flex B 4+/5, ext 4-/5 Ankle 5/5 grossly M6 PT-IP Treatment Start: 11/24/20 14:51 Freq: NEEDED Status: Active Protocol: Document 11/26/20 11:45 [facility] (Rec: 11/26/20 14:12 [facility] [id number]) Physical Therapy Treatment Other Treatments Other Treatment Performed Edu re: breathing, hands on Abdomen for self feedback, improved saturation. M7 PT-IP Assessment and Plan Start: 11/24/20 14:51 Freq: NEEDED Status: Active Protocol: Document 11/26/20 11:45 [facility] (Rec: 11/26/20 14:12 [facility] [id number]) PT Summary Assessment and Plan Potential Rehabilitation Potential Good Status of Condition at Evaluation Evolving Summary Impairments Strength,Balance,Coordination, Bed Mobility,Transfers,Gait, Activity Tolerance Progress Towards Goals Progressing Toward Goals,Slow Progress due to Medical Issues ,Slow Progress due to Activity Tolerance,Slow Progress - Other Assessment Summary Pt improved with standing endurance but continues to destat on 2L to 84-87%, improves with Max cuing for stop rest proper breath in standing to 89-90% on 2L. CGA- sBA using SPC and self manage O2 tubing in room. Completed 8/10 stairs has at home B HR CGA with assist for tubing. Recommending SNF vs assist HHPT to progress strength. Will continue to assess progress. Pt still needs to complete 10 stairs ( full flight) before ableto return home, unable to complete this tx. Goals Bed Mobility Goal Independent Transfer Goal Independent Gait Goal Standby Assistance Gait Distance 150ft Other Goals up/down flight of stairs (13 ) SBA w/rail and cane Days to Meet Goals 6 Frequency of Treatment Frequency Of Treatment Once a Day Treatment Plan Physical Therapy Treatment Plan Bed Mobility Training,Transfer Training,Gait Training, Therapeutic Exercise,Balance Retraining,Neuromuscular Re-ed Other Recommendations and Next Treatment energy conservation, breathing Focus edu, work on gait & stairs Recommendations To Nursing Amount of Assist Needed Standby Assistance,1 Person Assist Discharge Recommendations PT Discharge Recommendations Home with 05/11 Assist Available,Home Health,SNF Rehab,Home vs SNF Other Discharge Recommendations If pt does not have activity tolerance for ADLs may require SNF rehab Transportation Needs at Discharge Private Vehicle
--- NOTE | 2020-11-26 15:50 | CM.DPC ---
DCP Cont: Checked in with patient today. Introduced self and role. Patient was sitting up in his chair next to his bed, alert and oriented. Discussed discharge planning, for the therapy team feels that skilled rehab may be advisable before going home. Discussed with patient. Stated, he would rather not, he has friends that check in on him, and live nearby. Asked him if he would think about it and possibly consider. He indicated, he would think about it. He is familiar with [facility] in [place], his had been there when is was [facility], he checked in on her daily. Mentioned [facility] as well, and he indicated, that's a possibility. Patient stated, I am really hoping that I can go home with [facility]. They do have referral, as Arabella, case resolution specialist, went ahead and sent them the referral. Patient confirmed that he does have home oxygen with [facility], he has the concentrator, but not portables. He is hopeful that they can be provided by [facility] if he goes home, for he may need to be on continual oxygen. Asked him how he has been doing on his stairs at home, since he has a flight to navigate to his apartment. He mentioned, 'I have been doing it on my own, carrying up groceries. Reminded him that it may be more challenging for him since his illness here at the hospital. P: DCP to continue to follow, and will check in with patient again tomorrow to discuss plan. Will see how he does tomorrow with P.T. Brenna Estevez RN/Customer Development Representative
[2020-11-26] MEDS: AMLODIPINE 5 MG TABLET 10 MG PO (20:30)
[2020-11-27] VITALS (23 sets, daily range): BP systolic 120–156; BP diastolic 61–70; PULSE 57–91; RESP 16–20; TEMP 36–36.7; O2SAT 90–98
[2020-11-27] MEDS: TEMAZEPAM 15 MG CAPSULE PO (01:46)
[2020-11-27] MEDS: diphenhydrAMINE 25 MG TABLET PO (01:46)
[2020-11-27] MEDS: HYDROCODONE/ACET 10/325 TABLET 1 TAB PO (01:47)
[2020-11-27] MEDS: ALBUTEROL/IPRATROPIUM 3 ML AMPUL INH ×6 (02:02→23:52)
[2020-11-27 05:17] LABS: Blood Urea Nitrogen 71 mg/dL (9-20); Calcium 8.2 mg/dL (8.4-10.2); Carbon Dioxide 31 mmol/L (22-32); Chloride 94 mmol/L (98-107); Estimated Glomerular Filt Rate 48.2 mL/min (>60); Glucose 107 mg/dL (80-110); HEMOLYSIS < 15 (0-50); Sodium 127 mmol/L (137-145)
[2020-11-27] MEDS: BUDESONIDE 0.5 MG/2 ML NEB INH ×2 (07:07→21:17)
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
--- NOTE | 2020-11-27 07:58 | CM.DPC ---
DCP Cont: Went ahead and left September at [facility] a message to look at patient. After discussion with patient yesterday, he was contemplating the possibility of going to rehab, but his preference is home with home health. The therapy team continues to encourage rehab. P: DCP to continue to follow. Plan will either be skilled rehab, if patient will consent to go, or [facility], which has already been ordered for patient. Brenna Estevez RN/Diploma Medical Assistant
[2020-11-27] MEDS: SODIUM CHLORIDE 0.9% FLUSH 10 ML IV ×2 (08:34→21:23)
[2020-11-27] MEDS: METOPROLOL ER 25 MG TABLET PO ×2 (08:34→21:07)
[2020-11-27] MEDS: lisinopriL 20 MG TABLET 40 MG PO (08:35)
[2020-11-27] MEDS: predniSONE 20 MG TABLET 40 MG PO (08:35)
[2020-11-27] MEDS: ENOXAPARIN 40 MG/0.4 ML SYRINGE SUBCUT (08:35)
--- NOTE | 2020-11-27 11:50 | PT-IP ANOTE ---
Pt in bed with FUR BUYER in room when arrived. Pt refused working with therapy stated I have has many persons in my room and not a moment's peace since I got here. I finally got a good night sleep last night with what ever medications they gave me. I am in pain and can not work with therapy. I have friends coming this afternoon to talk with to see how I can get help at home and don't want to be interrupted but not sure what time they are coming. I am not usually a mean person. I can work with therapy tomorrow. TAXIMETER REPAIRER educated patient importance of working with nursing staff and therapy to progress strength with mobility as much as possible to work toward personal goal of returning home, pt verbal understanding but responded not today. TAXIMETER REPAIRER unable to see pt this day. TAXIMETER REPAIRER discussed with supervising PT (Merle) pt's refusal for awareness. Will continue to assess progress tomorrow.
[2020-11-27] MEDS: INSULIN LISPRO 100 UNIT/ML 3ML VIAL SUBCUT ×2 (12:21→17:29)
--- NOTE | 2020-11-27 13:47 | CM.DPC ---
DCP Cont: September from [facility] reviewed patient and indicated that they will not be able to accept until Saturday. Went ahead and electronically faxed referrals over to [facility]. Carito, physical therapist, indicated that he did not want to work with her or discuss fpc at this time. He indicated that he has a friend coming to visit him today to see if he can have some additional help at home. He does not want P.T. during the visit. Patient has about 18 stairs that he will need to go up to get into his apartment. He lives alone, and is determined to try to go home if possible with [facility]. P: Sent additional referrals [facility] to [facility]. Brenna Estevez RN/Stock Checkerer
--- NOTE | 2020-11-27 14:26 | PC.NURSE ---
Transfer. Pt transfered from room 227 to room 208 at 1410. Reason for same explained to pt, he no longer requires ICU level of care. Pt understands same. No transfer of care to another nurse. Will transfer care at shift change to oncoming nurse.
[2020-11-27] MEDS: ALBUTEROL 2.5 MG/3 ML NEB (ADULT) INH ×2 (18:02→21:18)
[2020-11-27] MEDS: guaiFENesin ER 600 MG TAB PO (19:06)
[2020-11-27] MEDS: AMLODIPINE 5 MG TABLET 10 MG PO (20:55)
[2020-11-28] VITALS (15 sets, daily range): BP systolic 104–151; BP diastolic 55–66; PULSE 62–77; RESP 12–20; TEMP 36.1–36.9; O2SAT 90–98
[2020-11-28] MEDS: HYDROCODONE/ACET 10/325 TABLET 1 TAB PO (00:51)
[2020-11-28] MEDS: MELATONIN 3 MG TABLET 6 MG PO ×2 (00:51→20:57)
[2020-11-28] MEDS: TEMAZEPAM 15 MG CAPSULE PO (00:52)
[2020-11-28] MEDS: diphenhydrAMINE 25 MG TABLET PO (00:52)
[2020-11-28 05:54] LABS: BUN Creatinine Ratio 43.9 (6-22); Blood Urea Nitrogen 65 mg/dL (9-20); Calcium 8.5 mg/dL (8.4-10.2); Carbon Dioxide 31 mmol/L (22-32); Chloride 99 mmol/L (98-107); Glucose 105 mg/dL (80-110); HEMOLYSIS < 15 (0-50); Potassium 4.9 mmol/L (3.4-5.1); Sodium 131 mmol/L (137-145)
[2020-11-28 05:56] LABS: Hematocrit 35.3 % (41-53); Hemoglobin 11.7 g/dL (13.5-17.5); Mean Corpuscular HGB Conc 33.2 % (30-36); Mean Corpuscular Hemoglobin 33.5 PG (26-34); Platelet Count 260 X10^3/uL (150-400); Red Cell Distribution Width 13.5 % (11.6-14.8); White Blood Cell Count 17.8 X10^3/uL (4.5-11.0)
[2020-11-28 06:07] LABS: Add Manual Diff / Slide Review YES
[2020-11-28 07:06] LABS: Anisocytosis 1+; Neutrophils Absolute Manual 13172 /uL (3000-5900); Total Cells Counted 100
[2020-11-28] MEDS: BUDESONIDE 0.5 MG/2 ML NEB INH ×2 (07:41→19:29)
[2020-11-28] MEDS: ALBUTEROL/IPRATROPIUM 3 ML AMPUL INH ×4 (07:41→19:29)
[2020-11-28] MEDS: predniSONE 20 MG TABLET 40 MG PO (08:35)
[2020-11-28] MEDS: MAGNESIUM HYDROXIDE 30 ML UDC PO (08:35)
[2020-11-28] MEDS: METOPROLOL ER 25 MG TABLET PO ×2 (08:35→20:57)
[2020-11-28] MEDS: ENOXAPARIN 40 MG/0.4 ML SYRINGE SUBCUT (08:35)
[2020-11-28] MEDS: SODIUM CHLORIDE 0.9% FLUSH 10 ML IV ×2 (08:39→20:58)
--- NOTE | 2020-11-28 10:17 | CM.DPC ---
Addendum entered by Brenna Estevez R.N. 11/28/20 11:54: Spoke to Alexa at [facility]. She indicated that they most likely will not be able to see patient if he is not established yet with a primary care provider. They have the referral, that was originally initiated with patient going home. It is noted by DC planning, that patient was supposed to establish with a primary care provider, residency program at the residency program with Dr. Larose. He was supposed to be seen tomorrow. She indicated that the only way that they could see patient is if he is already established, or if hospitalist would follow after discharge, which he or she could not after discharge. Did let Alexa know that skilled facility is being attempted, but she will hold referral. It is noted that [facility] does have a high accuity in home care needs, which has recently been established for those patients that are skilled level, but can't get into a facility. They do not need to have a primary care provider. Let Polina know that this medical planner will fax over a referral, this is plan B, in case skilled does not work out. Polina indicated that they can see patient as soon as . At this time, it is noted that [facility] can accept, but not until [facility] is reviewing, [facility] can't see without primary care provider, and [facility] may be able to establish by , if the plan ends up being home. Addendum entered by Brenna Estevez R.N. 11/28/20 11:22: Spoke to Alivia at [facility] who indicated that she can accept patient, but not until Saturday, unless another patient at this hospital is not yet ready. Will check in with Wendy at [facility] again today. Original Note: DCP Cont: Randee at [facility] had mentioned to TAX RECORD CLERK, that they can't accept patient secondary to his having a CPAP. Wendy at [facility] is reviewing, and left a message with Alivia at [facility] to see if Saturday is the earliest that they can accept, and if they definately accept patient. According to team rounds, patient is not yet medically ready for discharge as of yet. P: DCP to continue to work on discharge, will reach out again to Alivia at [facility], and Wendy at [facility]. Brenna Estevez, NOVA/Materials Analyst
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
[2020-11-28] MEDS: INSULIN LISPRO 100 UNIT/ML 3ML VIAL SUBCUT ×3 (12:15→20:57)
--- NOTE | 2020-11-28 12:18 | PT.IPTN ---
Current Diagnoses Hypo-osmolality and hyponatremia (11/22/20) Acute respiratory failure with hypercapnia (11/22/20) Physical Therapy Treatment Note M2 PT-IP Current Condition Start: 11/24/20 14:51 Freq: NEEDED Status: Active Protocol: Document 11/28/20 12:21 MA (Rec: 11/28/20 12:40 MA [id number]) Physical Therapy Current Condition Current Condition Evaluation Date 11/24/20 Treatment Diagnosis CPOD exac, weakness M3 PT-IP Subjective Start: 11/24/20 14:51 Freq: NEEDED Status: Active Protocol: Document 11/28/20 12:21 MA (Rec: 11/28/20 12:40 MA [id number]) Subjective Physical Therapy Visit Type Type Treatment Note Visit Start Time 11:38 Visit Stop Time 12:18 Total Visit Minutes 40 Notes Vitals upon arrival on 3L O2: SaO2 initial 89%, during mobility 83-85%, 91% seated in chair end of session Physical Therapy Visit Comments Patient Comments Agreeable to PT M4 PT-IP Mobility and Gait Start: 11/24/20 14:51 Freq: NEEDED Status: Active Protocol: Document 11/28/20 12:21 MA (Rec: 11/28/20 12:40 MA [id number]) PT-Bed Mobility Assessment Supine to Sit Supine to Sit Standby Assistance,Head of Bed Elevated,Bedrails Scooting Scooting to Edge of Bed Standby Assistance PT-Transfer Assessment Sit to and From Stand Sit to and from Stand Standby Assistance,1 Person Assistance,Use of Upper Extremities Equipment Transfer Assistive Device Gait Belt,Straight Cane,4 Wheeled Walker Orthotic/Prosthetic Devices or Brace: No Transfers Transfer Destination Chair,Toilet Transfer Technique Stand Step Pivot Transfer Ability Level of Assist Standby Assistance,1 Person Assistance,Use of Upper Extremities Comments Mobility Comments Pt in bed upon arrival on 3L O2 via NC; SaO2 89%. He is SBA for all bed mobility with HOB elevated. He is able to ambulate 10 ft to bathroom with gait belt and FWW, SBA where he stands with good balance to void. Once finished , he ambulates with FWW and gait belt to room sink and around room 20 ft. Switched FWW for SPC with pt able to walk another 10 ft in room and agreeable to walking in hallway. He ambulates 212 ft around nursing station with SPC, gait belt, and portable O2 at 3L via NC SBA. Detention through walking distance, pt performs stair training 13 steps. See below for more information. He returns to room chair, all needs within reach, SaO2 back up to 91%. Gait Assessment Gait Gait Assistance Required: Standby Assistance,1 Person Assist Distance (Feet) 250 Able to Maintain Weight Bearing Status Yes During Gait Assistive Devices Assistive Device Gait Belt,Straight Cane Orthotic/Prosthetic Devices or Brace: No Gait Deviations General Gait Pattern Decreased Stride Length, Decreased Feet Clearance, Narrow Based Gait Factors Limiting Gait Function Factors Limiting Gait Function Decreased Activity Tolerance, Decreased Strength,Poor Balance,Poor Safety Awareness, Respiratory Distress Comments Gait Comments See mobility comments Stair Climbing Assessment Evaluation Level of Assist On Stairs Contact Guard Assistance,2 Person Assistance Devices Stair Climbing Assistive Devices Left Railing,Right Railing Technique/Endurance Stair Climbing Direction Ascend and Descend Stair Climbing Technique Step Over Step,Step to Step Number of Steps Climbed 13 Stair Climbing Set # Repetitions (reps) 1 Comments Stair Climbing Comments Pt is able to descend stairs step-to pattern with bilateral rails CGA. At bottom of stairs pt's O2 levels are 82%; after standing 2 minute rest break, O2 levels 88%. Pt asends stairs [id number]. Second person used to help assist with portable O2 canister. PT-Balance Assessment Sitting Balance and Reactions Static Sitting Balance Ability Normal Dynamic Sitting Balance Ability Normal Standing Balance and Reactions Static Standing Balance Ability Good Dynamic Standing Balance Ability Fair Device Used SPC M5 PT-IP Objective Assessments Start: 11/24/20 14:51 Freq: NEEDED Status: Active Protocol: Document 11/24/20 14:51 [facility] (Rec: 11/24/20 15:06 [facility] [id number]) Orientation Orientation/Cognition Level of Alertness Alert Safety Awareness Understands Safety Issues Memory Description No Deficits Noted Gross Range of Motion Lower Extremity ROM Assessment Within Functional Limits Strength Lower Extremity Strength Assessment Bilaterally Impaired Hip grossly 3+/5 Knee flex B 4+/5, ext 4-/5 Ankle 5/5 grossly M6 PT-IP Treatment Start: 11/24/20 14:51 Freq: NEEDED Status: Active Protocol: Document 11/28/20 12:21 MA (Rec: 11/28/20 12:40 MA [id number]) Physical Therapy Treatment Exercises Exercises Ankle Pumps,Seated Knee Flexion/Extension Education Education Provided Safety Other Treatments Other Treatment Performed Had pt perform seated exercises of heel lifts, LAQ, and marches. Encouraged pt to do exercises throughout day. Educated pt on breathing techniques during exercises to keep O2 levels stable. M7 PT-IP Assessment and Plan Start: 11/24/20 14:51 Freq: NEEDED Status: Active Protocol: Document 11/28/20 12:21 MA (Rec: 11/28/20 12:40 MA [id number]) PT Summary Assessment and Plan Potential Rehabilitation Potential Good Status of Condition at Evaluation Evolving Summary Impairments Strength,Balance,Coordination, Bed Mobility,Transfers,Gait, Activity Tolerance Progress Towards Goals Progressing Toward Goals,Slow Progress due to Medical Issues ,Slow Progress due to Activity Tolerance Assessment Summary Pt is able to perform all bed mobility, chair transfers, toileting, and gait SBA with gait belt, SPC, and portable oxygen at 3L via NC. He is CGA assist on stairs with bilateral rails and is able to complete 1 full flight today descending step-to and ascending step-over patterns. Pt requires frequent rest breaks due to SaO2 dropping during exercise to 82% and needs verbal cues to breathe in through nose to help. Pt's SaO2 is 91% at end of session with pt seated in room chair, chair alarm on, O2 at 3L via NC, all needs within reach and nurse present delivering lunch. Goals Bed Mobility Goal Independent Transfer Goal Independent Gait Goal Standby Assistance Gait Distance 150ft Other Goals up/down flight of stairs (13 ) SBA w/rail and cane Days to Meet Goals 6 Frequency of Treatment Frequency Of Treatment Once a Day Treatment Plan Physical Therapy Treatment Plan Bed Mobility Training,Transfer Training,Gait Training, Therapeutic Exercise,Balance Retraining,Neuromuscular Re-ed Other Recommendations and Next Treatment Pt would like to continue Focus doing stairs in stairwell tomorrow. Edu: energy conservation, breathing Recommendations To Nursing Amount of Assist Needed Standby Assistance,1 Person Assist Discharge Recommendations PT Discharge Recommendations Home with 24/ Assist Available,Home Health,SNF Rehab,Home vs SNF Other Discharge Recommendations If pt does not have activity tolerance for ADLs may require SNF rehab Transportation Needs at Discharge Private Vehicle
--- NOTE | 2020-11-28 13:07 | CM.DPC ---
Addendum entered by Brenna Estevez R.N. 11/28/20 14:24: Was able to meet with patient briefly, and let him know that [facility] can accept. Let him know that it is near the hospital, on [address]. Wendy indicated that she can pick him up at 11:00am if he is ready. Will ensure that this is on the passdown for [place] senior program planner, who is working tomorrow. Let Wendy know that he is not vaccinated, and would need to be in a different area of the facility. Addendum entered by Brenna Estevez R.N. 11/28/20 13:25: Attempted to meet with patient, but he was not up for discussion now, he was speaking to kitchen staff, and asked this DC Photoengraver to come back. Will check in later. According to nurse, Yoli, patient was needing to be hoiered to his chair. Original Note: DCP Cont: Spoke to Wendy at [facility]. She confirmed that they can accept patient tomorrow. She was wanting to know if patient is medically stable at this time, and let her know that during team rounds, he was not deemed medically ready as of yet, due to his oxygen demands. P: DCP to continue to follow. If patient is deemed medically stable tomorrow, [facility] can accept. If not tomorrow, and by Wed, [facility] can accept as well. Will update patient today. Brenna Estevez RN/Cma
--- NOTE | 2020-11-28 14:54 | PM.PN.1 ---
Subjective Subjective Date Patient Seen: 11/28/20 Time Patient Seen: 08:30 Interval history: He feels mildly short of breath, but much improved. He said prior to coming in he did have oxygen, but wasn't followed up with by any health provider so he was using 8L of oxygen intermittently and other times not using any oxygen at all. Exam Vital Signs (past 8 hours): - 11/28/20 07:41 11/28/20 08:00 11/28/20 08:35 Temperature 96.9 F L Pulse Rate 64 64 70 Respiratory Rate 16 12 Blood Pressure 129/56 L Pulse Oximetry 95 98 11/28/20 09:17 11/28/20 10:49 11/28/20 12:00 Temperature 97.2 F L Pulse Rate 65 69 72 Respiratory Rate 20 12 Blood Pressure 140/60 Pulse Oximetry 93 92 11/28/20 14:29 Temperature Pulse Rate 77 Respiratory Rate 20 Blood Pressure Pulse Oximetry 93 Fraction of Inspired Oxygen 30 Oxygen Delivery Method Nasal Cannula Oxygen Flow Rate 3 Narrative Exam Narrative: GEN: He is alert and oriented x3. no acute distress CV: regular rate and rhythm without murmur PULM: wheezing bilaterally EXT: no edema ABD: soft, bowel sounds positive, nontender, no organomegaly. Objective Labs Result Diagrams: 11/28/20 05:20 11/28/20 05:20 Labs: Laboratory Results - last 24 hr 11/28/20 11/28/20 05:20 05:20 WBC 17.8 H RBC 3.50 L Hgb 11.7 L Hct 35.3 L MCV 101.0 H MCH 33.5 MCHC 33.2 RDW 13.5 Plt Count 260 Neut % (Auto) Not Reportable Lymph % (Auto) Not Reportable [place] % (Auto) Not Reportable Eos % (Auto) Not Reportable Baso % (Auto) Not Reportable Lymph # (Auto) Not Reportable [place] # (Auto) Not Reportable Baso # (Auto) Not Reportable Total Counted 100 Seg Neutrophils % 74.0 H Lymphocytes % (Manual) 17.0 L Monocytes % (Manual) 9.0 Neutrophils # (Manual) 96806 H RBC Morphology See below Anisocytosis 1+ H Sodium 131 L Potassium 4.9 Chloride 99 Carbon Dioxide 31 BUN 65 H Creatinine 1.48 H Estimated GFR 46.0 L BUN/Creatinine Ratio 43.9 H Glucose 105 Calcium 8.5 PFSH Medical History (Updated 11/26/20 @ 17:18 by Ermelinda Sanderson MD) Congestive heart failure Insomnia JESUS on CPAP Surgical History (Updated 11/23/20 @ 03:[address] [facility]) History of tonsillectomy Family History Mother Diabetes mellitus Father Diabetes mellitus Social History household members: none lives independently: Yes alcohol intake: current Assessment & Plan Assessment & Plan narrative: Mr. Garcia is a 79M with PMH COPD who presents with acute respiratory failure 1. Acute hypercapnic respiratory failure with hypoxia and COPD exacerbation in the possible setting of an acute CHF exacerbation, acute on chronic, in the setting of chronic JESUS with CPAP usage, present on admission, with intermittent home oxygen use. -possible acute on chronic, versus end-stage interstitial lung disease, COPD/CHF exacerbation -Patient's chest x-ray demonstrated similar opacities in right lower lobe as compared with 2020 possible scarring or atelectasis Emphysematous changes. -patient has chronic severe emphysema, he was on oxygen at home although intermittent -he continues to have significant hypoxemia and very likely will need to use oxygen both at home with activity and at rest -he has made significant improvement, however he continues to be bronchospastic and wheezing -discontinued IV Solu-Medrol 11/26 and started oral prednisone -will continue nebulized treatment -pending possible senior living facility placement in 1-2 days. 2. Hyponatremia -suspect this is multifactorial, continue 1200 cc fluid restriction -not on SSRI therapy or current diuretics. 3. Elevated troponin, acute, present on admission - CK-MB 5.57, troponin 0.074, proBNP 4930. Patient's lipase, procalcitonin negative. EKG: tachycardic at a rate of 102, with nonspecific ST and T-wave changes. -repeated troponin x2 -troponin peaked at 0.092 now 0.077 -suspect demand ischemia related to underlying acute hypoxic respiratory failure 3. Essential hypertension, acute on chronic, present on admission -continue patient's amlodipine -holding beta-laurie 25 mg twice daily -continue lisinopril 4. Chronic back pain due to degenerative disc disease, acute on chronic, present on admission -position for comfort, continue patient's gabapentin 5. Obesity as evidence by BMI 35.9, acute on chronic, present on admission Consideration will be given to dietary counseling. 6. SOLOMON Creatinine now 1.42, baseline 1.13 -will discontinue lasix for now -will continue to follow closely, suspect elevated creatinine related to diuresis on admission Patient is significantly deconditioned, he is very weak to return home at this time. Will continue physical therapy and occupational therapy. The patient will consider short course of rehabilitation prior to returning home likely in 1-3 days.
--- NOTE | 2020-11-28 15:54 | OT.IP.TRT ---
Current Diagnoses Hypo-osmolality and hyponatremia (11/22/20) Acute respiratory failure with hypercapnia (11/22/20) Occupational Therapy Treatment Note M2 OT-IP Current Condition Start: 11/24/20 15:50 Freq: Status: Active Protocol: Document 11/24/20 15:11 [facility] (Rec: 11/24/20 16:09 [facility] [id number]) Occupational Therapy Current Condition Current Condition Evaluation Date 11/24/20 Treatment Diagnosis CHF exacerbation, weakness M3 OT- IP Subjective and Pain Start: 11/24/20 15:50 Freq: Status: Active Protocol: Document 11/28/20 17:04 [facility] (Rec: 11/28/20 17:10 [facility] [id number]) OT- Subjective Occupational Therapy Visit Type Type Progress Note Visit Start Time 15:42 Visit Stop Time 15:54 Total Visit Minutes 12 Notes Pt states he has already walked and performed all ADLs. OT Pain Assessment Pain When Pain Assessed At Rest Pain Present Pain Present Denied Pain M4 OT- IP ADL's Start: 11/24/20 15:50 Freq: Status: Active Protocol: Document 11/28/20 17:04 [facility] (Rec: 11/28/20 17:10 [facility] [id number]) OT [id number] Comments OT Self-Feeding Comments Not meal time OT ADL-Grooming Comments OT Grooming Comments Not performed OT ADL-Oral Care Comments Oral Care Comments Not performed OT ADL-Dressing Comments OT Dressing Comments Not performed OT ADL-Toileting General Evaluation Toileting Ability Standby Assistance Comments OT Toileting Comments Pt stood at toilet for urination. OT ADL-Bathing Comments OT Bathing Comments Not performed M5 OT- IP IADL's Start: 11/24/20 15:50 Freq: Status: Active Protocol: Document 11/24/20 15:11 [facility] (Rec: 11/24/20 16:09 [facility] [id number]) OT-Instrumental Activities of Daily Living Deficits IADL Deficits Identified Deficits Home Safety Awareness Awareness of Need for Assistance at Home Good Awareness Ability to Problem Solve Emergency Able to Problem Solve Situations Medication Management Medication Management No Deficits Identified Money Management Money Management No Deficits Identified Meal Preparation Meal Preparation Comments Pt may need assist du to his decreased activity tolerance. Electrical Drafter Electrical Drafter Comments Pt would benefit from assist. M6 OT- IP Functional Cognition Start: 11/24/20 15:50 Freq: Status: Active Protocol: Document 11/26/20 16:58 [facility] (Rec: 11/26/20 17:10 [facility] [id number]) Cognitive Factors Limiting Selfcare Function Cognitive Ability Level of Alertness Alert Patient Orientation Name,Age,Birthday,Month,Date, Year,Day of Week,Place, Situation Attention Span Ability Unable to Focus,Unable to Sustain Attention Ability to Follow Commands Able to Follow One Step Commands with Increased Time, Able to Follow One Step Commands with Repetition Cognitive Tests SLUMS Pt performed the SLUMS with a total score of 21/30. Pt was only able to state 8 animals in 1 minute and remember 2 of the 5 objects on delayed recall. Pt missed 2 points for the clock numbering, and one of the listening comprehension questions. A score of 21 puts the patient at the low end of the mild neurocognitive disorder scoring. Cognitive Comments Cognitive Assessment Comments Pt needed max a to maintain topic maintence as SNF vs home was discussed. M7 OT- IP Mobility and Balance Start: 11/24/20 15:50 Freq: Status: Active Protocol: Document 11/28/20 17:04 [facility] (Rec: 11/28/20 17:10 [facility] [id number]) OT-Transfer Assessment Sit to and From Stand Sit to and from Stand Standby Assistance Transfers Transfer Ability Standby Assistance Technique Transfer Destination Chair,Toilet Transfer Technique Stand Step Pivot Devices Transfer Assistive Devices None Comments Mobility Comments Pt declined use of gait belt stating I can do it M8 OT- IP Objective Assessments Start: 11/24/20 15:50 Freq: Status: Active Protocol: Document 11/24/20 15:11 [facility] (Rec: 11/24/20 16:09 [facility] [id number]) OT Gross Range of Motion Upper Extremity Range of Motion Assessment Within Functional Limits OT Strength Upper Extremity Strength Assessment Within Functional Limits Comments Strength Comments Isometric strength WFL OT Sensation Assessment Comments Summary Comments Intact for light touch M9 OT- IP Assessment and Plan Start: 11/24/20 15:50 Freq: Status: Active Protocol: Document 11/28/20 17:04 [facility] (Rec: 11/28/20 17:10 [facility] [id number]) OT Summary Assessment and Plan Potential Rehabilitation Potential Good Analytic Complexity at Evaluation Moderate Summary OT Impairments Balance,Functional Mobility, Grooming,Dressing,Toileting, Bathing,Toilet Transfers, Shower Transfers,Activity Tolerance Progress Towards Goals Slow Progress due to Medical Issues,Slow Progress due to Activity Tolerance,Slow Progress due to Cognition Assessment Summary Pt tolerated limited session on this date. Pt requested to use the toilet but declined use of DME or gait belt for mobility. Pt stood for prolonged urination d/t interrupted flow then returned to chair. Pt on 3.5 L of o2 and stats 85 upon returning to chair. Stats increased to 92 within 1 minute. Pt left sitting up in chair at end of session. Call button within reach and all needs at time met. Chair fall alarm armed. Goals Grooming Goal Independent Dressing Goal Independent Toileting Goal Independent Bathing Goal Independent Toilet Transfer Goal Independent Shower Transfer Goal Independent Patient/Caregiver Education Goal Demonstrate Energy Conservation and Pacing Days to Meet Goals 15 Frequency of Treatment Frequency Of Treatment Once a Day Treatment Plan OT Treatment Plan ADL Training,Functional Mobility,Patient/Family Education,Discharge Planning Other Treatment Recommendations and Next Stand for grooming needs, LB Treatment Focus dressing Discharge Recommendations OT Discharge Recommendations Home Health,SNF Rehab,Home vs SNF Transportation Needs at Discharge Private Vehicle,Wheelchair/ Cabulance
--- NOTE | 2020-11-28 17:33 | PC.NURSE ---
Patient asked at beginning of shift where he will be placed tomorrow. Per chart review, he will be transferred to [facility]. I informed patient of this and he tells me he refuses to go to this facility as he has had several friends there, or get MRSA because no one is taking care of them. I wouldnt even send a dog there. I told him I would discuss with social work. Informed the social work team of this and they said he was agreeable when they spoke previously but did not want to speak with him again if he was angry as they have spoken already today. They will pass this along to day shift tomorrow and see if there are other options, but [facility] is the only one accepting him at this point. Informed patient of this and he said he will not go, but will talk with them tomorrow morning to try to figure it out.
[2020-11-28] MEDS: AMLODIPINE 5 MG TABLET 10 MG PO (20:57)
[2020-11-29] VITALS (14 sets, daily range): BP systolic 110–156; BP diastolic 65–76; PULSE 62–95; RESP 16–22; TEMP 36.2–36.5; O2SAT 87–96
[2020-11-29] MEDS: ALBUTEROL/IPRATROPIUM 3 ML AMPUL INH ×5 (00:04→20:31)
[2020-11-29] MEDS: diphenhydrAMINE 25 MG TABLET PO (00:45)
[2020-11-29] MEDS: TEMAZEPAM 15 MG CAPSULE PO (00:45)
[2020-11-29 05:33] LABS: Hematocrit 35.3 % (41-53); Hemoglobin 11.6 g/dL (13.5-17.5); Mean Corpuscular HGB Conc 32.9 % (30-36); Mean Corpuscular Hemoglobin 33.3 PG (26-34); Mean Corpuscular Volume 101.3 fL (80-100); Platelet Count 262 X10^3/uL (150-400); Red Blood Cell Count 3.48 X10^6/uL (4.5-5.9); Red Cell Distribution Width 13.3 % (11.6-14.8); White Blood Cell Count 17.2 X10^3/uL (4.5-11.0)
[2020-11-29 05:48] LABS: BUN Creatinine Ratio 38.4 (6-22); Blood Urea Nitrogen 53 mg/dL (9-20); Calcium 8.4 mg/dL (8.4-10.2); Carbon Dioxide 33 mmol/L (22-32); Chloride 98 mmol/L (98-107); Estimated Glomerular Filt Rate 49.8 mL/min (>60); Glucose 162 mg/dL (80-110); HEMOLYSIS < 15 (0-50); Sodium 134 mmol/L (137-145)
[2020-11-29] MEDS: METOPROLOL ER 25 MG TABLET PO ×2 (09:20→20:46)
[2020-11-29] MEDS: ENOXAPARIN 40 MG/0.4 ML SYRINGE SUBCUT (09:20)
[2020-11-29] MEDS: predniSONE 20 MG TABLET 40 MG PO (09:20)
[2020-11-29] MEDS: SODIUM CHLORIDE 0.9% FLUSH 10 ML IV (09:20)
[2020-11-29] MEDS: BUDESONIDE 0.5 MG/2 ML NEB INH (09:53)
--- NOTE | 2020-11-29 10:15 | OT.IPNOTE ---
Attempted to see pt for OT and pt states too tired and refused, therefore to attempt again later with pt. Pt insistent on going home with HH versus SNF.
--- NOTE | 2020-11-29 10:50 | CM.DPC ---
Addendum entered by Arabella Durán LPN 11/29/20 12:48: Have spoken now by phone with [facility]: [phone]. She confirms that she will be taking pt home at d/c. She is bringing some items over for him today but will plan to be back tomorrow at 1400 (cannot be here earlier) in expectation of the d/c order. Original Note: DCP: continued: case received and EMR for last few days reviewed. Checked in with pt who states firmly that I am going home, period. The Home Health with [facility] will be fine. [facility] will pick me up at d/c and I will see her later today. Discussed case in Team Rounds with Dr. Lynne who noted pt was not medically ready yet for d/c but expected he would be tomorrow. RT will assess for home supplemental oxygen needs. He is aware that pt desires a home plan. OT Yakelin was present at rounds and noted that snf would be preferable but home is possible, from a therapy standpoint. [facility] can accept pt tomorrow if he changes his mind but at this time pt not open to discussion on this. Have left a vm now for [facility], per pt's request, re the plan for home tomorrow. Will update [facility] re the pending d/c date.
--- NOTE | 2020-11-29 11:38 | OT.IP.TRT ---
Current Diagnoses Hypo-osmolality and hyponatremia (11/22/20) Acute respiratory failure with hypercapnia (11/22/20) Occupational Therapy Treatment Note M2 OT-IP Current Condition Start: 11/24/20 15:50 Freq: Status: Active Protocol: Document 11/24/20 15:11 [facility] (Rec: 11/24/20 16:09 [facility] [id number]) Occupational Therapy Current Condition Current Condition Evaluation Date 11/24/20 Treatment Diagnosis CHF exacerbation, weakness M3 OT- IP Subjective and Pain Start: 11/24/20 15:50 Freq: Status: Active Protocol: Document 11/29/20 11:49 [facility] (Rec: 11/29/20 11:58 [facility] [id number]) OT- Subjective Occupational Therapy Visit Type Type Treatment Note Visit Start Time 11:10 Visit Stop Time 11:38 Total Visit Minutes 28 Occupational Therapy Visit Comments Patient Comments Attempted earlier and pt not ready to be seen and then agreed to be seen prior to lunch. Patient/Caregiver Goals TO go home. OT Pain Assessment Pain When Pain Assessed At Rest Pain Present Pain Present Denied Pain M4 OT- IP ADL's Start: 11/24/20 15:50 Freq: Status: Active Protocol: Document 11/29/20 11:49 [facility] (Rec: 11/29/20 11:58 [facility] [id number]) OT ADL-Grooming General Evaluation Grooming Ability Standby Assistance Comments OT Grooming Comments Able to do while standing. OT ADL-Oral Care General Eval Oral Care Ability Independent OT ADL-Dressing General Eval Lower Body Dressing Ability Minimal Assistance Comments OT Dressing Comments SAURAV to help strap velcro as having difficulty to use international account executive to pull the strap tight. Told pt of option to modify his strap , but pt not interested to do so at this time. OT ADL-Toileting Comments OT Toileting Comments Pt did not have to go. OT ADL-Bathing Comments OT Bathing Comments Pt refusing, to attempt again tomorrow. M5 OT- IP IADL's Start: 11/24/20 15:50 Freq: Status: Active Protocol: Document 11/24/20 15:11 [facility] (Rec: 11/24/20 16:09 [facility] [id number]) OT-Instrumental Activities of Daily Living Deficits IADL Deficits Identified Deficits Home Safety Awareness Awareness of Need for Assistance at Home Good Awareness Ability to Problem Solve Emergency Able to Problem Solve Situations Medication Management Medication Management No Deficits Identified Money Management Money Management No Deficits Identified Meal Preparation Meal Preparation Comments Pt may need assist du to his decreased activity tolerance. Mud Temperer Mud Temperer Comments Pt would benefit from assist. M6 OT- IP Functional Cognition Start: 11/24/20 15:50 Freq: Status: Active Protocol: Document 11/26/20 16:58 [facility] (Rec: 11/26/20 17:10 [facility] [id number]) Cognitive Factors Limiting Selfcare Function Cognitive Ability Level of Alertness Alert Patient Orientation Name,Age,Birthday,Month,Date, Year,Day of Week,Place, Situation Attention Span Ability Unable to Focus,Unable to Sustain Attention Ability to Follow Commands Able to Follow One Step Commands with Increased Time, Able to Follow One Step Commands with Repetition Cognitive Tests SLUMS Pt performed the SLUMS with a total score of 21/30. Pt was only able to state 8 animals in 1 minute and remember 2 of the 5 objects on delayed recall. Pt missed 2 points for the clock numbering, and one of the listening comprehension questions. A score of 21 puts the patient at the low end of the mild neurocognitive disorder scoring. Cognitive Comments Cognitive Assessment Comments Pt needed max a to maintain topic maintence as SNF vs home was discussed. M7 OT- IP Mobility and Balance Start: 11/24/20 15:50 Freq: Status: Active Protocol: Document 11/29/20 11:49 [facility] (Rec: 11/29/20 11:58 [facility] [id number]) OT- Bed Mobility Assessment Supine to Sit Supine to Sit Assist Standby Assistance OT-Transfer Assessment Sit to and From Stand Sit to and from Stand Standby Assistance Transfers Transfer Ability Standby Assistance Technique Transfer Destination Bed,Chair Transfer Technique Stand Step Pivot Devices Transfer Assistive Devices Gait Belt,Straight Cane Comments Mobility Comments Pt able to walk in the room with distant SBA and use of SPC. Pt able to walk 212ft with SPC with good safety and awareness. Therapist able to move O2 tank for pt. OT- Balance Assessment Sitting Balance and Reactions Static Sitting Balance Ability Normal Dynamic Sitting Balance Ability Good Standing Balance and Reactions Static Standing Balance Ability Good M8 OT- IP Objective Assessments Start: 11/24/20 15:50 Freq: Status: Active Protocol: Document 11/24/20 15:11 [facility] (Rec: 11/24/20 16:09 [facility] [id number]) OT Gross Range of Motion Upper Extremity Range of Motion Assessment Within Functional Limits OT Strength Upper Extremity Strength Assessment Within Functional Limits Comments Strength Comments Isometric strength WFL OT Sensation Assessment Comments Summary Comments Intact for light touch M9 OT- IP Assessment and Plan Start: 11/24/20 15:50 Freq: Status: Active Protocol: Document 11/29/20 11:49 [facility] (Rec: 11/29/20 11:58 [facility] [id number]) OT Summary Assessment and Plan Potential Rehabilitation Potential Good Analytic Complexity at Evaluation Moderate Summary OT Impairments Balance,Functional Mobility, Grooming,Dressing,Toileting, Bathing,Toilet Transfers, Shower Transfers,Activity Tolerance Progress Towards Goals Progressing Toward Goals Assessment Summary Pt much better with mobility needs and now looking to go home with home health. Pt still needing assist with ADL needs of strapping velcro when donning his shoes. To attempt shower tomorrow. Pt states has friends and neighbors to assist him as needed. Goals Grooming Goal Independent Dressing Goal Independent Toileting Goal Independent Bathing Goal Independent Toilet Transfer Goal Independent Shower Transfer Goal Independent Patient/Caregiver Education Goal Demonstrate Energy Conservation and Pacing Days to Meet Goals 5 Frequency of Treatment Frequency Of Treatment Once a Day Treatment Plan OT Treatment Plan ADL Training,Functional Mobility,Patient/Family Education,Discharge Planning Other Treatment Recommendations and Next shower Treatment Focus Discharge Recommendations OT Discharge Recommendations Home with Assistance,Home Health Transportation Needs at Discharge Private Vehicle
--- NOTE | 2020-11-29 11:53 | PT-IP ANOTE ---
Approached pt for PT treatment but he had just returned from OT and stated he would prefer to wait until after lunch. Will follow up with pt later today as staffing allows.
[2020-11-29] MEDS: MAGNESIUM HYDROXIDE 30 ML UDC PO (14:35)
--- NOTE | 2020-11-29 15:29 | P.PN_ITS ---
Subjective Subjective Date Patient Seen: 11/29/20 Time Patient Seen: 08:00 Interval history: Today he continues to feel somewhat improved, but still short of breath. He declines SNF placement. Exam Vital Signs (past 8 hours): - 11/29/20 08:28 11/29/20 09:52 11/29/20 10:13 Temperature 97.2 F L Pulse Rate 69 86 Respiratory Rate 18 20 Blood Pressure 144/70 H Pulse Oximetry 94 87 L 92 11/29/20 10:22 11/29/20 11:23 11/29/20 13:04 Temperature 97.7 F Pulse Rate 62 95 H 73 Respiratory Rate 16 20 Blood Pressure 110/70 Pulse Oximetry 94 94 Fraction of Inspired Oxygen 30 Oxygen Delivery Method Nasal Cannula Oxygen Flow Rate 2 Narrative Exam Narrative: EN: He is alert and oriented x3. no acute distress CV: regular rate and rhythm without murmur PULM: wheezing improving bilaterally EXT: no edema ABD: soft, bowel sounds positive, nontender, no organomegaly. Objective Labs Result Diagrams: 11/29/20 05:15 11/29/20 05:15 Labs: Laboratory Results - last 24 hr 11/29/20 11/29/20 05:15 05:15 WBC 17.2 H RBC 3.48 L Hgb 11.6 L Hct 35.3 L MCV 101.3 H MCH 33.3 MCHC 32.9 RDW 13.3 Plt Count 262 Sodium 134 L Potassium 5.0 Chloride 98 Carbon Dioxide 33 H BUN 53 H Creatinine 1.38 H Estimated GFR 49.8 L BUN/Creatinine Ratio 38.4 H Glucose 162 H Calcium 8.4 PFSH Medical History (Updated 11/26/20 @ 17:18 by Ermelinda Sanderson MD) Congestive heart failure Insomnia JESUS on CPAP Surgical History (Updated 11/23/20 @ 03:51 by JESSE Ann) History of tonsillectomy Family History Mother Diabetes mellitus Father Diabetes mellitus Social History household members: none lives independently: Yes alcohol intake: current Assessment & Plan Assessment & Plan narrative: Mr. Garcia is a 79M with PMH COPD who presents with acute respiratory failure 1. Acute hypercapnic respiratory failure with hypoxia and COPD exacerbation in t he possible setting of an acute CHF exacerbation, acute on chronic, in the setting of chronic JESUS with CPAP usage, present on admission, with intermittent home oxygen use. -possible acute on chronic, versus end-stage interstitial lung disease, COPD/CHF exacerbation -Patient's chest x-ray demonstrated similar opacities in right lower lobe as compared with 2020 possible scarring or atelectasis Emphysematous changes. -patient has chronic severe emphysema, he was on oxygen at home although intermittent -he continues to have hypoxemia and very likely will need to use oxygen both at home with activity and at rest -he has made significant improvement, however he continues to be short of breath -discontinued IV Solu-Medrol 11/26 and started oral prednisone to be completed 11/29 -will continue nebulized treatment -recommended snf placement but patient declines 2. Hyponatremia, improved -suspect this is multifactorial, continue 1200 cc fluid restriction -not on SSRI therapy or current diuretics. 3. Elevated troponin secondary to cardiac demand ischemia, acute, present on admission - CK-MB 5.57, troponin 0.074, proBNP 4930. Patient's lipase, procalcitonin negative. EKG: tachycardic at a rate of 102, with nonspecific ST and T-wave changes. -repeated troponin x2 -troponin peaked at 0.092 now 0.077 -has no cardiac symptoms, no chest pain, likely related to copd flare 4. Essential hypertension, acute on chronic, present on admission -continue patient's amlodipine -holding beta-laurie 25 mg twice daily -continue lisinopril 5. Chronic back pain due to degenerative disc disease, acute on chronic, present on admission -position for comfort, continue patient's gabapentin 6. Obesity as evidence by BMI 35.9, acute on chronic, present on admission Consideration will be given to dietary counseling. 7. SOLOMON Creatinine now 1.38, baseline 1.13, peaked at 1.48 -will discontinue lasix for now -will continue to follow closely, suspect elevated creatinine related to diuresis on admission, and now improving Patient is significantly deconditioned, he is very weak to return home at this time. Will continue physical therapy and occupational therapy. Anticipate dc to home on 11/30, patient declines snf though have strongly recommended this is appropriate discharge for him.
--- NOTE | 2020-11-29 15:37 | PT.IPTN ---
Current Diagnoses Hypo-osmolality and hyponatremia (11/22/20) Acute respiratory failure with hypercapnia (11/22/20) Physical Therapy Treatment Note M2 PT-IP Current Condition Start: 11/24/20 14:51 Freq: NEEDED Status: Active Protocol: Document 11/28/20 12:21 [facility] (Rec: 11/28/20 12:40 [facility] [id number]) Physical Therapy Current Condition Current Condition Evaluation Date 11/24/20 Treatment Diagnosis CPOD exac, weakness M3 PT-IP Subjective Start: 11/24/20 14:51 Freq: NEEDED Status: Active Protocol: Document 11/29/20 15:26 [facility] (Rec: 11/29/20 16:20 [facility] [id number]) Subjective Physical Therapy Visit Type Type Treatment Note Visit Start Time 15:26 Visit Stop Time 15:37 Total Visit Minutes 11 Notes Vitals taken: SaO2 >90% on 2L. Number of WILDLIFE BIOLOGIST Visits 4 Physical Therapy Visit Comments Patient Comments Agreeable to PT Patient Goals Pt declined repeat of stair mgt, stated I did well last tx but willing to walk hallway again to see how I do with portable tank myself. Therapy Pain Assessment Pain Present Pain Present Denied Pain M4 PT-IP Mobility and Gait Start: 11/24/20 14:51 Freq: NEEDED Status: Active Protocol: Document 11/29/20 15:26 [facility] (Rec: 11/29/20 16:20 [facility] [id number]) PT-Transfer Assessment Sit to and From Stand Sit to and from Stand Standby Assistance,Use of Upper Extremities Equipment Transfer Assistive Device Gait Belt,Straight Cane Orthotic/Prosthetic Devices or Brace: No Transfers Transfer Destination Chair Transfer Technique ambulated using SPC and managing portable O2 tank and tubing Transfer Ability Level of Assist Standby Assistance,Use of Upper Extremities Comments Mobility Comments Pt able to change O2 tubing room line to portable tank post education, 2L. Sit<>stand using chair arm and SPC SBA, stable. Pt able to manage portable O2 pushing vs pulling with LUE while using SPC in RUE, stable balance around nursing station with 3 brief stopped rests to recovery from + elevating breath rate during gait and back to chair in room, no deviations or LOB SBA. Pt maintained >mid 90s on 2L during mobility. Pt was in chair with all needs and back on room air 2L before left. PT Recommending HHPT and pt ok to return home with assist when medically cleared. Gait Assessment Gait Gait Assistance Required: Standby Assistance Distance (Feet) 250 Able to Maintain Weight Bearing Status Yes During Gait Assistive Devices Assistive Device Gait Belt,Straight Cane Orthotic/Prosthetic Devices or Brace: No Gait Deviations General Gait Pattern Decreased Stride Length, Decreased Feet Clearance, Narrow Based Gait Factors Limiting Gait Function Factors Limiting Gait Function Decreased Activity Tolerance, Decreased Strength,Respiratory Distress Comments Gait Comments see mobility comments Stair Climbing Assessment Comments Stair Climbing Comments Did not assess this tx, pt declined reassessment. PT-Balance Assessment Sitting Balance and Reactions Static Sitting Balance Ability Normal Dynamic Sitting Balance Ability Good Standing Balance and Reactions Static Standing Balance Ability Good Dynamic Standing Balance Ability Fair Device Used SPC and portable O2 tank M5 PT-IP Objective Assessments Start: 11/24/20 14:51 Freq: NEEDED Status: Active Protocol: Document 11/24/20 14:51 [facility] (Rec: 11/24/20 15:06 [facility] [id number]) Orientation Orientation/Cognition Level of Alertness Alert Safety Awareness Understands Safety Issues Memory Description No Deficits Noted Gross Range of Motion Lower Extremity ROM Assessment Within Functional Limits Strength Lower Extremity Strength Assessment Bilaterally Impaired Hip grossly 3+/5 Knee flex B 4+/5, ext 4-/5 Ankle 5/5 grossly M6 PT-IP Treatment Start: 11/24/20 14:51 Freq: NEEDED Status: Active Protocol: Document 11/29/20 15:26 [facility] (Rec: 11/29/20 16:20 [facility] [id number]) Physical Therapy Treatment Education Education Provided Safety M7 PT-IP Assessment and Plan Start: 11/24/20 14:51 Freq: NEEDED Status: Active Protocol: Document 11/29/20 15:26 [facility] (Rec: 11/29/20 16:20 [facility] [id number]) PT Summary Assessment and Plan Potential Rehabilitation Potential Good Status of Condition at Evaluation Evolving Summary Impairments Strength,Balance,Coordination, Bed Mobility,Transfers,Gait, Activity Tolerance Progress Towards Goals Progressing Toward Goals,Slow Progress due to Activity Tolerance Assessment Summary Pt is able to complete chair transfers, gait with gait belt , SPC and manage portable oxygen at 2 L via NC himself SBA. Pt requires frequent rest breaks due to elevated breath rate during gait SaO2 >90% and needs verbal cues to breathe in through nose to help. Pt's SaO2 is 91% at end of session with pt seated in room chair, chair alarm on, O2 at 2L via NC, all needs within reach. Goals Bed Mobility Goal Independent Transfer Goal Independent Gait Goal Standby Assistance Gait Distance 150ft Other Goals up/down flight of stairs (13 ) SBA w/rail and cane Days to Meet Goals 6 Frequency of Treatment Frequency Of Treatment Once a Day Treatment Plan Physical Therapy Treatment Plan Bed Mobility Training,Transfer Training,Gait Training, Therapeutic Exercise,Balance Retraining,Neuromuscular Re-ed Other Recommendations and Next Treatment Stair mgt to assess A required Focus , gait hallway managing portable O2 with proper breath decrease cuing. Recommendations To Nursing Amount of Assist Needed Standby Assistance Discharge Recommendations PT Discharge Recommendations Home with Assistance,Home Health Transportation Needs at Discharge Private Vehicle
[2020-11-29] MEDS: INSULIN LISPRO 100 UNIT/ML 3ML VIAL SUBCUT ×2 (16:59→20:47)
[2020-11-29] MEDS: MELATONIN 3 MG TABLET 6 MG PO (20:46)
[2020-11-29] MEDS: AMLODIPINE 5 MG TABLET 10 MG PO (20:46)
[2020-11-30] VITALS: BP 137/68; PULSE 73; RESP 18; TEMP 36.1; O2SAT 94
[2020-11-30] MEDS: diphenhydrAMINE 25 MG TABLET PO (00:03)
[2020-11-30] MEDS: TEMAZEPAM 15 MG CAPSULE PO (00:03)
[2020-11-30] MEDS: HYDROCODONE/ACET 10/325 TABLET 1 TAB PO (00:03)
[2020-11-30 04:58] VITALS: PULSE 72; RESP 16; O2SAT 96
[2020-11-30] MEDS: ALBUTEROL/IPRATROPIUM 3 ML AMPUL INH ×2 (04:58→11:12)
[2020-11-30 05:00] VITALS: BP 156/72; PULSE 65; RESP 16; TEMP 36.2; O2SAT 97
[2020-11-30 05:40] LABS: Hematocrit 36.4 % (41-53); Hemoglobin 12.1 g/dL (13.5-17.5); Mean Corpuscular HGB Conc 33.3 % (30-36); Mean Corpuscular Hemoglobin 33.5 PG (26-34); Mean Corpuscular Volume 100.8 fL (80-100); Platelet Count 274 X10^3/uL (150-400); Red Blood Cell Count 3.62 X10^6/uL (4.5-5.9); Red Cell Distribution Width 13.6 % (11.6-14.8); White Blood Cell Count 16.3 X10^3/uL (4.5-11.0)
[2020-11-30 05:53] LABS: BUN Creatinine Ratio 32.6 (6-22); Blood Urea Nitrogen 43 mg/dL (9-20); Calcium 8.5 mg/dL (8.4-10.2); Carbon Dioxide 34 mmol/L (22-32); Chloride 98 mmol/L (98-107); Estimated Glomerular Filt Rate 52.5 mL/min (>60); Glucose 99 mg/dL (80-110); HEMOLYSIS < 15 (0-50); Sodium 134 mmol/L (137-145)
--- NOTE | 2020-11-30 06:37 | PC.NURSE ---
A&OX4, calls appropriately. Bed alarm set for safety. Patient is able to make needs known and has been calm and cooperative. stated that he is excited for possible discharge today. Patient states that he is down to baseline oxygen requirements and has been working with PT with much improvement. Voids per urinal. Last BM yesterday X2, pt stated both were large. Medicated for insomnia and moderate spinal pain. pt slept well through the shift and was dayami to go back to sleep after RT TX and lab draws in AM. Pt looks refreshed and happy
[2020-11-30] MEDS: ENOXAPARIN 40 MG/0.4 ML SYRINGE SUBCUT (08:12)
[2020-11-30] MEDS: SODIUM CHLORIDE 0.9% FLUSH 10 ML IV (08:13)
[2020-11-30] MEDS: METOPROLOL ER 25 MG TABLET PO (08:13)
[2020-11-30] MEDS: BUDESONIDE 0.5 MG/2 ML NEB INH (08:47)
[2020-11-30] MEDS: ALBUTEROL 2.5 MG/3 ML NEB (ADULT) INH (08:47)
[2020-11-30 08:48] VITALS: PULSE 67; RESP 14; O2SAT 96
[2020-11-30 08:57] VITALS: BP 150/69; PULSE 72; RESP 14; TEMP 36.2; O2SAT 97
--- NOTE | 2020-11-30 09:25 | OT.IP.TRT ---
Current Diagnoses Hypo-osmolality and hyponatremia (11/22/20) Acute respiratory failure with hypercapnia (11/22/20) Occupational Therapy Treatment Note M2 OT-IP Current Condition Start: 11/24/20 15:50 Freq: Status: Active Protocol: Document 11/24/20 15:11 [facility] (Rec: 11/24/20 16:09 [facility] [id number]) Occupational Therapy Current Condition Current Condition Evaluation Date 11/24/20 Treatment Diagnosis CHF exacerbation, weakness M3 OT- IP Subjective and Pain Start: 11/24/20 15:50 Freq: Status: Active Protocol: Document 11/30/20 10:12 [facility] (Rec: 11/30/20 10:18 [facility] [id number]) OT- Subjective Occupational Therapy Visit Type Type Treatment Note Visit Start Time 09:00 Visit Stop Time 09:25 Occupational Therapy Visit Comments Patient Comments Pt not wanting to shower but wanting to get dressed. Patient/Caregiver Goals To go home. OT Pain Assessment Pain When Pain Assessed At Rest Pain Present Pain Present Denied Pain M4 OT- IP ADL's Start: 11/24/20 15:50 Freq: Status: Active Protocol: Document 11/30/20 10:12 [facility] (Rec: 11/30/20 10:18 [facility] [id number]) OT [id number] Comments OT Self-Feeding Comments Not meal time OT ADL-Grooming General Evaluation Grooming Ability Independent Comments OT Grooming Comments Able to do while standing. OT ADL-Oral Care General Eval Oral Care Ability Independent OT ADL-Dressing General Eval Upper Body Dressing Ability Independent Lower Body Dressing Ability Independent,Moderate Assistance Comments OT Dressing Comments Pt able to maribel /doff his shoes today without difficulty as able to bend forwards today. Pt states had a BM and feels that helped so he is able to reach his shoes now. Pt already had his shoes on and therefore just wanted therapist to maribel his pants over his shoes. Pt to take home LB dressing equipment to assist at home as needed. M5 OT- IP IADL's Start: 11/24/20 15:50 Freq: Status: Active Protocol: Document 11/24/20 15:11 [facility] (Rec: 11/24/20 16:09 [facility] [id number]) OT-Instrumental Activities of Daily Living Deficits IADL Deficits Identified Deficits Home Safety Awareness Awareness of Need for Assistance at Home Good Awareness Ability to Problem Solve Emergency Able to Problem Solve Situations Medication Management Medication Management No Deficits Identified Money Management Money Management No Deficits Identified Meal Preparation Meal Preparation Comments Pt may need assist du to his decreased activity tolerance. Spring Machine Operator Spring Machine Operator Comments Pt would benefit from assist. M6 OT- IP Functional Cognition Start: 11/24/20 15:50 Freq: Status: Active Protocol: Document 11/30/20 10:12 [facility] (Rec: 11/30/20 10:18 [facility] [id number]) Cognitive Factors Limiting Selfcare Function Cognitive Comments Cognitive Assessment Comments Pt at baseline. M7 OT- IP Mobility and Balance Start: 11/24/20 15:50 Freq: Status: Active Protocol: Document 11/30/20 10:12 [facility] (Rec: 11/30/20 10:18 [facility] [id number]) OT-Transfer Assessment Sit to and From Stand Sit to and from Stand Independent Transfers Transfer Ability Independent Technique Transfer Destination Bed,Chair Transfer Technique Stand Step Pivot Devices Transfer Assistive Devices None Comments Mobility Comments Pt able to use the cane in the room independently with good safety. OT- Balance Assessment Sitting Balance and Reactions Static Sitting Balance Ability Normal Dynamic Sitting Balance Ability Good Standing Balance and Reactions Static Standing Balance Ability Good M8 OT- IP Objective Assessments Start: 11/24/20 15:50 Freq: Status: Active Protocol: Document 11/24/20 15:11 [facility] (Rec: 11/24/20 16:09 [facility] [id number]) OT Gross Range of Motion Upper Extremity Range of Motion Assessment Within Functional Limits OT Strength Upper Extremity Strength Assessment Within Functional Limits Comments Strength Comments Isometric strength WFL OT Sensation Assessment Comments Summary Comments Intact for light touch M9 OT- IP Assessment and Plan Start: 11/24/20 15:50 Freq: Status: Active Protocol: Document 11/30/20 10:12 [facility] (Rec: 11/30/20 10:18 [facility] [id number]) OT Summary Assessment and Plan Potential Rehabilitation Potential Good Analytic Complexity at Evaluation Moderate Summary OT Impairments Balance,Functional Mobility, Grooming,Dressing,Toileting, Bathing,Toilet Transfers, Shower Transfers,Activity Tolerance Progress Towards Goals Progressing Toward Goals Assessment Summary Pt doing well today and able to do all his dressing needs on his own with good safety. Pt looking to go home with home health today. Goals Grooming Goal Independent Dressing Goal Independent Toileting Goal Independent Toilet Transfer Goal Independent Shower Transfer Goal Independent Patient/Caregiver Education Goal Demonstrate Energy Conservation and Pacing Days to Meet Goals 1 Frequency of Treatment Frequency Of Treatment Once a Day Treatment Plan OT Treatment Plan ADL Training,Functional Mobility,Patient/Family Education,Discharge Planning Discharge Recommendations OT Discharge Recommendations Home with Assistance,Home Health Transportation Needs at Discharge Private Vehicle
--- NOTE | 2020-11-30 10:24 | CM.DPC ---
DCP Cont: According to notes from LIBAN Bell Software Engineer Advisor yesterday, patient is adamant, about going home versus skilled. He has improved today, and is being discharged. According to notes from Alexa Bell at [facility] had been updated yesterday, for the last time that this transit planner had spoken to her, they could't see him if he was not established with a recent provider. Called Alexa today. She indicated that she has been in contact with the residency providers at [facility], and has a call out to one of the providers to see if they can be available should patient need any orders. She indicated that one of them may be Dr. Rodrigues. Andrea stated, it shouldn't be a problem, but will update this transit planner either way. Let her know that patient is discharging home today, and that friend, Coco, is picking up patient at approximately 1400. Let her know that this pillowcase turner will fax over DC Summary when completed. Yoly, nurse, is aware of plan as well. P: Patient is discharging home today with [facility]. Brenna Estevez RN/Direct Selling Counselor
--- NOTE | 2020-11-30 10:30 | PT.IPTN ---
Current Diagnoses Hypo-osmolality and hyponatremia (11/22/20) Acute respiratory failure with hypercapnia (11/22/20) Physical Therapy Treatment Note M2 PT-IP Current Condition Start: 11/24/20 14:51 Freq: NEEDED Status: Discharge Protocol: Document 11/28/20 12:21 MA (Rec: 11/28/20 12:40 MA [id number]) Physical Therapy Current Condition Current Condition Evaluation Date 11/24/20 Treatment Diagnosis CPOD exac, weakness M3 PT-IP Subjective Start: 11/24/20 14:51 Freq: NEEDED Status: Discharge Protocol: Document 11/30/20 10:12 SP (Rec: 11/30/20 12:47 SP [id number]) Subjective Physical Therapy Visit Type Type Treatment Note Visit Start Time 10:12 Visit Stop Time 10:30 Total Visit Minutes 18 Notes Vitals taken during tx: seated rest SaO2 94% on 2L, during gait 90% on 2L with stopped rests x3 total with breath 10 sec recovers to 93% 2L, descend 13 stairs 89-90% on 2L, recovers in standing rest bottom holding rail 1 min breath 92% 2L, ascend 13 stair then gait back to room 87% on 2L, recovers within 20 sec 93% on 2L. TWISTING FRAME FIXER provided S for safety during hospital stair well mgt , no assist required. Number of WASHHOUSE HAND Visits 5 Physical Therapy Visit Comments Patient Comments Agreeable to PT Patient Goals return home with neighbor support Therapy Pain Assessment Pain Present Pain Present Denied Pain M4 PT-IP Mobility and Gait Start: 11/24/20 14:51 Freq: NEEDED Status: Discharge Protocol: Document 11/30/20 10:12 SP (Rec: 11/30/20 12:47 SP [id number]) PT-Transfer Assessment Sit to and From Stand Sit to and from Stand Independent,Use of Upper Extremities Equipment Transfer Assistive Device Gait Belt,Straight Cane Orthotic/Prosthetic Devices or Brace: No Transfers Transfer Destination Chair Transfer Technique ambulated using SPC and managing portable O2 tank and tubing Transfer Ability Level of Assist Independent Comments Mobility Comments Pt continued to manage changing over to portable O2 tank on 2L. Sit<> stand from room chair 1 UE support with SPC, able to manage SPC in RUE and portable O2 tank on R pulling behind at L side 250 ft around nursing station Mod I with good self stop brief recovery breath, completed 13 stair management descending using L HR and SPC in RUE receiprocal step SBA with cuing for slower pacing for safety and safety breath and energy conservation, required 2nd person to manage portable O2 tank and tubing. Pt desaturated to 89-90% on 2L recovered in standing within 1 min proper slow breath post cues to 93% 2L. Ascended 13 stairs R HR and SPC in LUE receiprocal gait SBA. Pt stopped at top stairs proper breath stand rest SBA then walked back to the room Mod I using SPC and continued mgt of portable O2. Stand>sit Mod I using 1 UE. Pt able change portable back to room O2 tubing and turning tank back off. Pt was seated in chair with call light and all needs in reach before left. Gait Assessment Gait Gait Assistance Required: Independent Distance (Feet) 250 Able to Maintain Weight Bearing Status Yes During Gait Assistive Devices Assistive Device Gait Belt,Straight Cane Orthotic/Prosthetic Devices or Brace: No Factors Limiting Gait Function Factors Limiting Gait Function Decreased Activity Tolerance, Decreased Strength,Respiratory Distress Comments Gait Comments See mobility comments Stair Climbing Assessment Evaluation Level of Assist On Stairs Standby Assistance,1 Person Assistance Devices Stair Climbing Assistive Devices Straight Cane,Left Railing Technique/Endurance Stair Climbing Direction Ascend and Descend Stair Climbing Technique Step Over Step Number of Steps Climbed 13 Stair Climbing Set # Repetitions (reps) 1 Comments Stair Climbing Comments See mobility comments PT-Balance Assessment Sitting Balance and Reactions Static Sitting Balance Ability Normal Dynamic Sitting Balance Ability Good Standing Balance and Reactions Static Standing Balance Ability Good Dynamic Standing Balance Ability Good Device Used SPC and portable O2 tank M5 PT-IP Objective Assessments Start: 11/24/20 14:51 Freq: NEEDED Status: Discharge Protocol: Document 11/24/20 14:51 [facility] (Rec: 11/24/20 15:06 [facility] [id number]) Orientation Orientation/Cognition Level of Alertness Alert Safety Awareness Understands Safety Issues Memory Description No Deficits Noted Gross Range of Motion Lower Extremity ROM Assessment Within Functional Limits Strength Lower Extremity Strength Assessment Bilaterally Impaired Hip grossly 3+/5 Knee flex B 4+/5, ext 4-/5 Ankle 5/5 grossly M6 PT-IP Treatment Start: 11/24/20 14:51 Freq: NEEDED Status: Discharge Protocol: Document 11/30/20 10:12 SP (Rec: 11/30/20 12:47 SP [id number]) Physical Therapy Treatment Education Education Provided Safety M7 PT-IP Assessment and Plan Start: 11/24/20 14:51 Freq: NEEDED Status: Discharge Protocol: Document 11/30/20 10:12 SP (Rec: 11/30/20 12:47 SP [id number]) PT Summary Assessment and Plan Potential Rehabilitation Potential Good Status of Condition at Evaluation Evolving Summary Impairments Strength,Balance,Coordination, Bed Mobility,Transfers,Gait, Activity Tolerance Progress Towards Goals Progressing Toward Goals,Slow Progress due to Activity Tolerance Assessment Summary Pt is Mod I during transfers and gait using SPC and managing portable O2. Pt required occasional cuing during stairwell mgt for proper breath and slow pacing mobility on stairs to allow safety O2 saturation sBA and 2nd person assist for portable (pulling) O2 mgt on stairs. Pt is ok to return home with neighbors to assist him as needed when medically stable, including assist for managing portable pulling O2 tank of which he set up for DC. Pt would benefit from HHPT to improve functional strength acclimating to home environment. Goals Bed Mobility Goal Independent Transfer Goal Independent Gait Goal Standby Assistance Gait Distance 150ft Other Goals up/down flight of stairs (13 ) SBA w/rail and cane Days to Meet Goals 6 Frequency of Treatment Frequency Of Treatment Once a Day Treatment Plan Physical Therapy Treatment Plan Bed Mobility Training,Transfer Training,Gait Training, Therapeutic Exercise,Balance Retraining,Neuromuscular Re-ed Other Recommendations and Next Treatment stair mgt for Le strengthening Focus and endurance. Recommendations To Nursing Amount of Assist Needed Independent,Standby Assistance Discharge Recommendations PT Discharge Recommendations Home with Assistance,Home Health Transportation Needs at Discharge Private Vehicle
[2020-11-30 11:14] VITALS: PULSE 73; RESP 14; O2SAT 97
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
--- NOTE | 2020-11-30 14:39 | PC.NURSE ---
Pt has received orders to discharge from the care of the hospital and return home. He leaves on 2L O2 via nasal cannula as is his baseline. Education regarding CHF, COPD and Acute kidney injury has been discussed. Pt acknowledges understanding. Pt has been escorted out of the hospital via wheelchair by GLEN Alberto to his friends awaiting car at approximately 1415
== END 2020-11-30 12:30 | disposition home or self-care (01) | DRG 189 ==
LOC: ED 15:51 → AC 18:19 → ICU 11-23 08:26 → AC 11-27 14:23
PROVIDERS: Family Medicine; Internal Medicine; Nurse Practitioner Family; Admitting Provider Internal Medicine; Emergency Provider Emergency Medicine; Referring Provider Emergency Medicine; Visit Provider Internal Medicine
DX: J96.02 Acute respiratory failure with hypercapnia (principal); I50.33 Acute on chronic diastolic (congestive) heart failure; J44.1 Chronic obstructive pulmonary disease with (acute) exacerbation; E87.1 Hypo-osmolality and hyponatremia; N17.9 Acute kidney failure, unspecified; I24.8 Other forms of acute ischemic heart disease; J96.01 Acute respiratory failure with hypoxia; I11.0 Hypertensive heart disease with heart failure; E66.9 Obesity, unspecified; Z68.34 Body mass index [BMI] 34.0-34.9, adult; G47.33 Obstructive sleep apnea (adult) (pediatric); Z20.822 Contact with and (suspected) exposure to COVID-19
CPT/HCPCS: 36415; 36592; 36600; 71045; 80048; 80053; 82550; 82553; 82805; 82962; 83605; 83690; 83735; 83880; 84145; 84484; 85007; 85025; 85027; 85610; 87040; 87635; 87797; 93005; 94640; 94660; 94667; 94668; 94760; 94762; 96361; 96374; 97110; 97116; 97129; 97130; 97162; 97166; 97530; 97535; 99284; 99285; 99406; C9803; J1650; J1815; J1940; J2930; J7613